=== PATIENT | female | born 1950 | race African-American/Black ===

== ENCOUNTER 2018-07-03 15:20 | Observation (INO) | payer OTHER ==
[2018-07-03 17:11] LABS: Magnesium 1.9 mg/dL (1.8-2.4); Potassium 4.1 mmol/L (3.5-5.1)
[2018-07-03] MEDS ORDERED: METHYLPREDNISOLONE 125 MG INJ ONE (17:11)
[2018-07-03] MEDS ORDERED: IPRATROPIUM BROM 0.5MG/2.5ML ONE (17:11)
[2018-07-03] MEDS ORDERED: ALBUTEROL 2.5 MG/3 ML NEB SOL ONE (17:11)
[2018-07-03] MEDS ORDERED: HYDROCODONE/CHLORPHEN 5 ML/OSYR ONE (17:11)
[2018-07-03 17:12] LABS: Absolute Lymphocytes (CBC) 1.4 K/uL (0.7-4.9); Absolute Monocytes 0.6 K/uL (0.1-1.3); Absolute Neutrophil 2.3 K/uL (1.8-8.0); Basophils % 0.8 % (0-1.3); Eosinophils % 0.1 % (0-4.4); Hematocrit 43.6 % (36.0-45.0); Lymphocytes % 32.9 % (15.3-44.8); MPV 8.7 fL (7.6-11.3); Monocytes % 13.4 % (3.3-12.3)
--- NOTE | 2018-07-03 17:25 | RAD REPORT ---
EXAM DESCRIPTION: Jasbir Single View07/03/2018 4:13 pm CLINICAL HISTORY: Cough COMPARISON: 2017 FINDINGS: The lungs appear clear of acute infiltrate. The heart is normal size IMPRESSION: No acute abnormalities displayed
--- NOTE | 2018-07-03 18:02 | ER ---
Nurse's Notes [facility] Name: Indu Abreu Age: 68 yrs Sex: Female : 1950 Arrival Date: 07/03/2018 Time: 15:24 Bed 8 Private MD: Lucio Powers Diagnosis: Acute bronchitis;Acute respiratory failure with hypoxia Presentation: 07/03 15:31 Presenting complaint: Patient states: NV/D, body aches, headache, productive cough with hb yellow sputum, fever, and fever x 3 days. Not tolerating liquids. Transition of care: patient was not received from another setting of care. Onset of symptoms was July 01, 2018. Risk Assessment: Do you want to hurt yourself or someone else? Patient reports no desire to harm self or others. Care prior to arrival: None. 15:31 Method Of Arrival: Ambulatory hb 15:31 Acuity: HUGH 3 hb 15:42 Initial Sepsis Screen: Does the patient meet any 2 criteria? No. Patient's initial tw2 sepsis screen is negative. Does the patient have a suspected source of infection? No. Patient's initial sepsis screen is negative. Historical: - Allergies: 15:35 No Known Allergies; hb - Home Meds: 15:35 acetaminophen-codeine 300-30 mg Oral tab 2 tabs every 6 hours [Active]; Colace 100 mg hb Oral cap 1 cap 2 times per day [Active]; duloxetine 60 mg Oral cpDR 1 cap once daily [Active]; furosemide 20 mg Oral tab 1 tab once daily [Active]; lisinopril 20 mg Oral tab 1 tab once daily [Active]; Lovenox 30 mg/0.3 mL Sub-Q syrg once daily [Active]; Neurontin 300 mg Oral cap 3 caps 3 times per day [Active]; nortriptyline 10 mg Oral cap 1 caps 3 times per day [Active]; omeprazole 20 mg Oral cpDR 1 cap once daily [Active]; Zofran (as hydrochloride) 4 mg Oral tab 1 tabs every 8 hours [Active]; - PMHx: 15:35 Anemia; Asthma; Hepatitis; Hypertension; Rheumatoid Arthritis; GERD; hb - PSHx: 15:35 knee surgery L; hb - Immunization history:: Adult Immunizations up to date. - Social history:: Smoking status: Patient/guardian denies using tobacco. - Ebola Screening: : No symptoms or risks identified at this time. Screenin:41 Abuse screen: Denies threats or abuse. Nutritional screening: No deficits noted. tw2 Tuberculosis screening: No symptoms or risk factors identified. Fall Risk None identified. Assessment: 15:45 General: Appears in no apparent distress. comfortable, well groomed, well developed, sg well nourished, Behavior is calm, cooperative, appropriate for age. Pain: Complains of pain in body aches Pain does not radiate. Quality of pain is described as aching. Neuro: No deficits noted. Cardiovascular: Heart tones S1 S2 present Capillary refill is brisk in bilateral fingers Patient's skin is warm and dry. Chest pain is denied. Respiratory: Airway is patent Respiratory effort is even, unlabored, Respiratory pattern is regular, symmetrical, Breath sounds are diminished in right upper lobe. Respiratory: Reports cough that is hacking, persistent pain with cough. GI: No signs and/or symptoms were reported involving the gastrointestinal system. : No deficits noted. No signs and/or symptoms were reported regarding the genitourinary system. EENT: No deficits noted. Derm: Skin is intact, is healthy with good turgor, Skin is dry, Skin is pink, warm \T\ dry. Skin temperature is warm. Musculoskeletal: No deficits noted. 16:30 Reassessment: Patient appears in no apparent distress at this time. Patient and/or sg family updated on plan of care and expected duration. Pain level reassessed. Patient is alert, oriented x 3, equal unlabored respirations, skin warm/dry/pink. Patient states symptoms have not improved. 17:40 Reassessment: Patient appears in no apparent distress at this time. Patient and/or sg family updated on plan of care and expected duration. Pain level reassessed. Patient is alert, oriented x 3, equal unlabored respirations, skin warm/dry/pink. awaiting admission orders at this time, pt states feeling better Patient states feeling better. 18:40 Reassessment: Patient appears in no apparent distress at this time. Patient and/or sg family updated on plan of care and expected duration. Pain level reassessed. Patient is alert, oriented x 3, equal unlabored respirations, skin warm/dry/pink. 19:35 Reassessment: Patient aware of pending admission. Neuro: Level of Consciousness is lp1 awake, alert, obeys commands. Respiratory: Reports cough that is pain with cough Respiratory effort is even, Respiratory pattern is regular, Breath sounds are coarse bilaterally. Derm: Skin is intact, Skin is dry, Skin is normal. Vital Signs: 15:33 BP 152 / 98; Pulse 118; Resp 18; Temp 98.; Pulse Ox 96% on R/A; Weight 136.08 kg; hb Height 5 ft. 7 in. (170.18 cm); Pain 10/10; 16:40 BP 142 / 90; Pulse 112; Resp 19 S; Pulse Ox 98% on R/A; sg 18:30 BP 154 / 92; Pulse 112; Resp 19 S; Pulse Ox 96% on R/A; Pain 8/10; sg 19:35 BP 151 / 83; Pulse 107; Resp 20; Temp 99.4(O); Pulse Ox 95% on 2 lpm NC; Pain 0/10; lp1 15:33 Body Mass Index 46.99 (136.08 kg, 170.18 cm) hb ED Course: 15:24 Patient arrived in ED. sb2 15:24 Lucio Powers DO is Private Physician. sb2 15:33 Triage completed. hb 15:35 Arm band placed on right wrist. hb 15:40 Placed in gown. Bed in low position. sheet combining operator on. Pulse ox on. NIBP on. tw2 15:48 Eric Linder PA is PHCP. jr8 15:48 Suleman Bradshaw MD is Attending Physician. jr8 16:13 XRAY Chest (1 view) In Process Unspecified. EDMS 16:15 EKG done, by design technology teacher. reviewed by Eric HORN. sm3 16:44 Inserted saline lock: 22 gauge in left upper arm, using aseptic technique. ,using tw2 aseptic technique. per TANYA Che Blood collected. 16:58 Dell Mtz, TANYA is Primary Nurse. sg 18:02 Alfredo Correa MD is Hospitalizing Provider. jr8 19:36 No provider procedures requiring assistance completed. Patient admitted, IV remains in lp1 place. Administered Medications: 17:13 Drug: SOLU-Medrol 125 mg Route: IVP; Site: left upper arm; sg 17:13 Drug: Albuterol - atroVENT (3:1) (2.5 mg - 0.5 mg) 3 ml Route: Nebulizer; sg 17:13 Drug: Tussionex Pennkinetic ER 5 ml Route: PO; Outcome: 18:02 Decision to Hospitalize by Provider. jrPaty 19:44 Condition: stable lp1 19:44 Instructed on the need for admit. 19:48 Admitted to Tele accompanied by nurse, via wheelchair, room 415, with oxygen, with lp1 chart, Report called to Terrie Yi RN 19:54 Patient left the ED. lp1 Signatures: Dispatcher [employer] EDMS Dell Mtz RN TANYA sg Lynne Moreno RN RN lp1 Eric Linder PA PA jr8 Yane Lowery RN RN Elyse Wagner RN RN 2 Kadi Graf 2 Suzie Traore 3
--- NOTE | 2018-07-03 18:02 | EDPHYS ---
Physician Documentation [facility] Name: Indu Abreu Age: 68 yrs Sex: Female : 1950 Arrival Date: 07/03/2018 Time: 15:24 Bed 8 Private MD: Gio [facility] ED Physician Suleman Bradshaw HPI: 07/03 17:01 This 68 yrs old Black Female presents to ER via Ambulatory with complaints of Flu jr8 Symptoms. 17:01 The patient has shortness of breath at rest. Onset: The symptoms/episode began/occurred jr8 gradually, 3 day(s) ago. Duration: The symptoms are continuous. The patient's shortness of breath is aggravated by coughing, talking, walking. Associated signs and symptoms: Pertinent positives: productive cough. Severity of symptoms: At their worst the symptoms were moderate in the emergency department the symptoms are unchanged. It is unknown whether or not the patient has had similar symptoms in the past. The patient has not recently seen a physician. Historical: - Allergies: 15:35 No Known Allergies; hb - Home Meds: 15:35 acetaminophen-codeine 300-30 mg Oral tab 2 tabs every 6 hours [Active]; Colace 100 mg hb Oral cap 1 cap 2 times per day [Active]; duloxetine 60 mg Oral cpDR 1 cap once daily [Active]; furosemide 20 mg Oral tab 1 tab once daily [Active]; lisinopril 20 mg Oral tab 1 tab once daily [Active]; Lovenox 30 mg/0.3 mL Sub-Q syrg once daily [Active]; Neurontin 300 mg Oral cap 3 caps 3 times per day [Active]; nortriptyline 10 mg Oral cap 1 caps 3 times per day [Active]; omeprazole 20 mg Oral cpDR 1 cap once daily [Active]; Zofran (as hydrochloride) 4 mg Oral tab 1 tabs every 8 hours [Active]; - PMHx: 15:35 Anemia; Asthma; Hepatitis; Hypertension; Rheumatoid Arthritis; GERD; hb - PSHx: 15:35 knee surgery L; hb - Immunization history:: Adult Immunizations up to date. - Social history:: Smoking status: Patient/guardian denies using tobacco. - Ebola Screening: : No symptoms or risks identified at this time. ROS: 17:01 Eyes: Negative for injury, pain, redness, and discharge, Neck: Negative for injury, jr8 pain, and swelling, Cardiovascular: Negative for chest pain, palpitations, and edema, Abdomen/GI: Negative for abdominal pain, nausea, vomiting, diarrhea, and constipation, Back: Negative for injury and pain, MS/Extremity: Negative for injury and deformity, Skin: Negative for injury, rash, and discoloration, Neuro: Negative for headache, weakness, numbness, tingling, and seizure. 17:01 ENT: Positive for rhinorrhea, sinus congestion. 17:01 Respiratory: Positive for cough, dyspnea on exertion, shortness of breath, wheezing. Exam: 17:01 Eyes: Pupils equal round and reactive to light, extra-ocular motions intact. Lids and jr8 lashes normal. Conjunctiva and sclera are non-icteric and not injected. Cornea within normal limits. Periorbital areas with no swelling, redness, or edema. ENT: Nares patent. No nasal discharge, no septal abnormalities noted. Tympanic membranes are normal and external auditory canals are clear. Oropharynx with no redness, swelling, or masses, exudates, or evidence of obstruction, uvula midline. Mucous membranes moist. Neck: Trachea midline, no thyromegaly or masses palpated, and no cervical lymphadenopathy. Supple, full range of motion without nuchal rigidity, or vertebral point tenderness. No Meningismus. Cardiovascular: Regular rate and rhythm with a normal S1 and S2. No gallops, murmurs, or rubs. Normal PMI, no JVD. No pulse deficits. Abdomen/GI: Soft, non-tender, with normal bowel sounds. No distension or tympany. No guarding or rebound. No evidence of tenderness throughout. Back: No spinal tenderness. No costovertebral tenderness. Full range of motion. Skin: Warm, dry with normal turgor. Normal color with no rashes, no lesions, and no evidence of cellulitis. MS/ Extremity: Pulses equal, no cyanosis. Neurovascular intact. Full, normal range of motion. Neuro: Awake and alert, GCS 15, oriented to person, place, time, and situation. Cranial nerves II-XII grossly intact. Motor strength 5/5 in all extremities. Sensory grossly intact. Cerebellar exam normal. Normal gait. 17:01 Respiratory: mild respiratory distress is noted, Respirations: tachypnea, Breath sounds: decreased breath sounds, that are mild, are heard in the right upper lobe, rhonchi, that are mild, are heard diffusely, wheezing: expiratory that is moderate, is heard diffusely. Vital Signs: 15:33 BP 152 / 98; Pulse 118; Resp 18; Temp 98.; Pulse Ox 96% on R/A; Weight 136.08 kg; hb Height 5 ft. 7 in. (170.18 cm); Pain 10/10; 16:40 BP 142 / 90; Pulse 112; Resp 19 S; Pulse Ox 98% on R/A; sg 18:30 BP 154 / 92; Pulse 112; Resp 19 S; Pulse Ox 96% on R/A; Pain 8/10; sg 19:35 BP 151 / 83; Pulse 107; Resp 20; Temp 99.4(O); Pulse Ox 95% on 2 lpm NC; Pain 0/10; lp1 15:33 Body Mass Index 46.99 (136.08 kg, 170.18 cm) hb MDM: 15:48 Patient medically screened. jr8 18:00 Data reviewed: vital signs, nurses notes, lab test result(s), EKG, radiologic studies, jr8 plain films, and as a result, I will admit patient. Data interpreted: Pulse oximetry: on room air is 86 %. Interpretation: hypoxia. Plan: O2 by NC applied. Counseling: I had a detailed discussion with the patient and/or guardian regarding: the historical points, exam findings, and any diagnostic results supporting the discharge/admit diagnosis, lab results, radiology results, the need for further work-up and treatment in the hospital. ED course: post steroids and breathing treatments. Patient still at rest 85-89% RA. Will admit for Acute bronchitis with hypoxia . 07/03 15:56 Order name: CBC with Diff; Complete Time: 17:17 07/03 15:56 Order name: Basic Metabolic Panel; Complete Time: 17:17 07/03 15:56 Order name: XRAY Chest (1 view); Complete Time: 17:33 07/03 15:56 Order name: Influenza Screen (a \T\ B); Complete Time: 17:01 07/03 15:57 Order name: Magnesium; Complete Time: 17:17 07/03 15:57 Order name: NT PRO-BNP; Complete Time: 17:17 07/03 15:55 Order name: Oxygen; Complete Time: 16:59 07/03 15:56 Order name: IV; Complete Time: 16:59 07/03 15:57 Order name: EKG; Complete Time: 15:57 07/03 15:57 Order name: Cardiac monitoring; Complete Time: 16:58 07/03 15:57 Order name: EKG - Nurse/Tech; Complete Time: 16:58 07/03 15:57 Order name: Labs collected and sent; Complete Time: 16:58 07/03 15:57 Order name: O2 Per Protocol; Complete Time: 16:58 07/03 15:57 Order name: O2 Sat Monitoring; Complete Time: 16:58 Administered Medications: 17:13 Drug: SOLU-Medrol 125 mg Route: IVP; Site: left upper arm; sg 17:13 Drug: Albuterol - atroVENT (3:1) (2.5 mg - 0.5 mg) 3 ml Route: Nebulizer; sg 17:13 Drug: Tussionex Pennkinetic ER 5 ml Route: PO; sg Disposition: 07/03/18 18:02 Hospitalization ordered by Alfredo Correa for Observation. Preliminary diagnosis are Acute bronchitis, Acute respiratory failure with hypoxia. - Bed requested for Telemetry/MedSurg (observation). - Status is Observation. lp1 - Condition is Stable. - Problem is new. - Symptoms are unchanged. UTI on Admission? No Addendum: 07/14/2018 07:34 Co-signature as Attending Physician, Suleman Bradshaw MD I agree with the assessment and k dr plan of care. Signatures: Dispatcher [employer] EDMS Dell Mtz RN RN sg Suleman Bradshaw MD MD kdr Martinez, Eric em1 Lynne Moreno RN RN lp1 Eric Linder PA PA jr8 Yane Lowery RN RN Corrections: (The following items were deleted from the chart) 07/03 18:03 18:02 Hospitalization Ordered by Alfredo Correa MD for Observation. Preliminary diagnosis jr8 is Acute bronchitis; Acute respiratory failure with hypoxia. Bed requested for Telemetry/MedSurg (observation). Status is Observation. Condition is Stable. Problem is new. Symptoms are unchanged. UTI on Admission? No. jr8 19:20 18:03 07/03/2018 18:02 Hospitalization Ordered by Alfredo Correa MD for Observation. em1 Preliminary diagnosis is Acute bronchitis; Acute respiratory failure with hypoxia. Bed requested for Telemetry/MedSurg (observation). Status is Observation. Condition is Stable. Problem is new. Symptoms are unchanged. UTI on Admission? No. jr8 19:54 19:20 07/03/2018 18:02 Hospitalization Ordered by Alfredo Correa MD for Observation. lp1 Preliminary diagnosis is Acute bronchitis; Acute respiratory failure with hypoxia. Bed requested for Telemetry/MedSurg (observation). Status is Observation. Condition is Stable. Problem is new. Symptoms are unchanged. UTI on Admission? No. em1
[2018-07-03] MEDS ORDERED: ONDANSETRON 4 MG/2 ML VIAL IV PRN (20:22)
[2018-07-03] MEDS ORDERED: ACETAMINOPHEN 500 MG TAB PO PRN (20:22)
[2018-07-03 21:15] VITALS: BMI 44.4
[2018-07-03] MEDS ORDERED: METHYLPREDNISOLONE 125 MG INJ IV ONE (22:02)
[2018-07-03] MEDS: HYDROCODONE/CHLORPHEN 5 ML/OSYR PO PRN (22:46)
[2018-07-04] MEDS: IPRATROPIUM BROM 0.5MG/2.5ML NEB SCH ×4 (02:00→19:15)
[2018-07-04] MEDS: ALBUTEROL 2.5 MG/3 ML NEB SOL NEB SCH ×4 (02:00→19:15)
[2018-07-04 06:41] LABS: Albumin 3.3 g/dL (3.4-5.0); Bilirubin Total 0.2 mg/dL (0.2-1.0); Potassium 4.6 mmol/L (3.5-5.1)
[2018-07-04] MEDS: METHYLPREDNISOLONE 125 MG INJ IV SCH ×2 (06:47→12:00)
--- NOTE | 2018-07-04 07:01 | EKG ---
Test Date: 2018-07-03 Test Time: 16:10:38 Chalk Molding Machine Operator: MALAIKA MEASUREMENT RESULTS: Intervals: Rate: 114 WA: 142 QRSD: 68 QT: 334 QTc: 460 [place]: P: 76 WA: 142 QRS: 82 T: 65 INTERPRETIVE STATEMENTS: Sinus tachycardia with premature atrial complexes Otherwise normal ECG No previous ECG available for comparison Electronically Signed On 07-04-18 06:52:16 BUTT SAWYER by Sunny Hernandez
[2018-07-04] MEDS ORDERED: PNEUMOCOCCAL VACCINE 0.5 ML IMVAC ONE (08:00)
--- NOTE | 2018-07-04 09:23 | P.HP ---
Certification for Inpatient Patient admitted to: Observation With expected LOS: <2 Midnights Patient will require the following post-hospital care: None Practitioner: I am a practitioner with admitting privileges, knowledge of patient current condition, hospital course, and medical plan of care. Services: Services provided to patient in accordance with Admission requirements found in Title 42 Section 412.3 of the Code of Federal Regulations Patient History Date of Service: 07/03/18 Reason for admission: Shortness of breath History of Present Illness: Patient is a 68-year-old female with a history of asthma. She also has obstructive sleep apnea. She came to the hospital with difficulty breathing. She was coughing and congested and having wheezing. In the ER her workup was unremarkable and she was diagnosed with an asthma exacerbation. She was given nebs, steroids, and will start antibiotics. We will check peak flows. Plan to discharge patient in 48 hr. Allergies No Known Drug Allergies Allergy (Verified 07/03/18 21:34) Unknown Home Medications: Acetaminophen with Codeine [Acetaminophen-Cod #3 Tablet] 1 tab PO TIDP PRN 07/03 Dicyclomine HCl 1 tab PO QIDP PRN 07/03/18 Gabapentin 900 mg PO TID 07/03/18 Hydrocortisone Acetate [Hydrocortisone] 2 debbie TP TIDP PRN 07/03/18 Lisinopril [Prinivil*] 20 mg PO BID 07/03/18 Montelukast [Singulair] 10 mg PO BEDTIME 07/03/18 Nortriptyline HCl [Pamelor*] 10 mg PO TID 07/03/18 Solifenacin [Vesicare*] 5 mg PO DAILY 07/03/18 Sucralfate [Carafate] 2 tsp PO ACHS 07/03/18 Zolpidem Tartrate [Ambien] 5 mg PO BEDTIME PRN 07/04/18 - Past Medical/Surgical History Has patient received pneumonia vaccine in the past: No Diabetic: No -: Hepatitis B & C -: Asthma -: Rhematoid arthritis -: Pneumonia -: Multiple Myeloma -: Appendectomy -: Left knee replacement -: Stem cell Transplant - Family History Father Medical History: Cancer Mother Medical History: Lung disease Brother Medical History: Hypertension, Lung disease Sister Medical History: Heart disease, Blood disorders Notes: hemipheliac - Social History Smoking Status: Former smoker Alcohol use: No CD- Drugs: No Caffeine use: Yes Place of Residence: Home Review of Systems 10-point ROS is otherwise unremarkable Physical Examination - Vital Signs Temperature: 96.1 F Blood Pressure: 136/81 Pulse: 83 Respirations: 16 Pulse Ox (%): 94 - Physical Exam General: Alert, In no apparent distress, Oriented x3 HEENT: Atraumatic, PERRLA, Mucous membr. moist/pink, EOMI, Sclerae nonicteric Neck: Supple, 2+ carotid pulse no bruit, No LAD, Without JVD or thyroid abnormality Respiratory: Clear to auscultation bilaterally, Normal air movement Cardiovascular: Regular rate/rhythm, Normal S1 S2, No murmurs Gastrointestinal: Normal bowel sounds, Soft and benign, Non-distended, No tenderness Musculoskeletal: No clubbing, No swelling, No tenderness Integumentary: No rashes Neurological: Normal gait, Normal speech, Normal strength at 5/5 x4 extr, Normal tone, Sensation intact, Cranial nerves 3-12 intact, Normal affect Lymphatics: No axilla or inguinal lymphadenopathy - Studies Laboratory Data (last 24 hrs) 07/03/18 16:40: Sodium 133 L, Potassium 4.1, BUN 16, Creatinine 1.20, Glucose 98 , Magnesium 1.9 07/03/18 16:40: WBC 4.4 D, Hgb 14.3, Hct 43.6, Plt Count 158 Microbiology Data (last 24 hrs): 07/03/18 16:25 Nasopharnyx Influenza Type A Antigen Screen - Final 07/03/18 16:25 Nasopharnyx Influenza Type B Antigen Screen - Final Assessment & Plan - Problems (Diagnosis) (1) Asthma exacerbation Onset Date: 07/04/18 Current Visit: Yes Status: Acute - Plan Plan: 1. Continue with albuterol and Atrovent nebs 2. Continue with IV steroids 3. Outpatient pulmonary function testing 4. Pulmonary follow-up 5. Room air O2 sats 6. Repeat chest x-ray in am 7. Peak flows every AM 8. GI and DVT prophylaxis Discharge Plan: Home Plan to discharge in: 48 Hours - Advance Directives Does patient have a Living Will: No Does patient have a Durable POA for Healthcare: No - Code Status/Comfort Care Code Status Assessed: Yes Code Status: Full Code Critical Care: No Time Spent Managing PTS Care (In Minutes): 50
[2018-07-04] MEDS: AZITHROMYCIN 250 MG TAB PO SCH (10:00)
[2018-07-04] MEDS: HYDROCODONE/CHLORPHEN 5 ML/OSYR PO PRN ×2 (10:55→22:27)
[2018-07-04] MEDS ORDERED: ZOLPIDEM TARTRATE 5 MG TABLET PO PRN (14:52)
--- NOTE | 2018-07-04 15:04 | P.PN ---
Subjective Date of Service: 07/04/18 Chief Complaint: Shortness of breath Physical Examination - Vital Signs Temperature: 96.5 F Blood Pressure: 137/88 Pulse: 94 Respirations: 20 Pulse Ox (%): 91 - Studies Laboratory Data (last 24 hrs) 07/03/18 16:40: Sodium 133 L, Potassium 4.1, BUN 16, Creatinine 1.20, Glucose 98 , Magnesium 1.9 07/03/18 16:40: WBC 4.4 D, Hgb 14.3, Hct 43.6, Plt Count 158 Microbiology Data (last 24 hrs): 07/03/18 16:25 Nasopharnyx Influenza Type A Antigen Screen - Final 07/03/18 16:25 Nasopharnyx Influenza Type B Antigen Screen - Final Assessment And Plan - Plan This is a 68-year-old female with: Asthma exacerbation Continue with albuterol and Atrovent nebs. Switched to oral steroids from IV steroids She will need outpatient pulmonary followup along with pulmonary function testing with exacerbation is resolved. And a weaned off oxygen Will repeat a chest x-ray tomorrow morning. No need for antibiotics at this time. Hepatitis-B and C Patient with a history of hepatitis-B and C. Not on any treatment. Stable, she will continue outpatient follow up for this Rheumatoid arthritis Stable Multiple myeloma history, requiring stem-cell transplant Stable DVT prophylaxis: Not needed, encourage ambulation GI prophylaxis: Not needed Diet: Heart healthy Disposition: Pending symptomatic improvement. Likely discharge home in the next 24-48 hr Physician Review: Patient Assessed, Agree with Above Assessment and Plan Time Spent Managing PTS Care (In Minutes): 35
--- OUTSIDE RECORDS SUMMARY | 2018-07-04 17:35 | XMS REPORT ---
:1950 Author Organization [employer] Care Team Providers Name Role Phone Gio Lucio Provider Role Unavailable Allergies, Adverse Reactions, Alerts Substance Reaction Event Type N.K.D.A. 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 Problem Adverse effect of antineoplastic T45.1X5A Active and immunosuppressive drugs, initial encounter Problem Chronic hepatitis C without B18.2 Active hepatic coma Problem Hepatitis B infection without B19.10 Active delta agent without hepatic coma, unspecified chronicity Problem Hypertension, unspecified type I10 Active Problem Osteoarthritis of multiple joints, M15.9 Active unspecified osteoarthritis type Problem Polyp of colon, unspecified part K63.5 Active of colon, unspecified type Assessment Osteoarthritis of multiple joints, M15.9 Active unspecified osteoarthritis type Assessment Hepatitis B infection without B19.10 Active delta agent without hepatic coma, unspecified chronicity Assessment Chronic hepatitis C without B18.2 Active hepatic coma Assessment Adverse effect of antineoplastic T45.1X5A Active and immunosuppressive drugs, initial encounter Assessment Polyp of colon, unspecified part K63.5 Active of colon, unspecified type 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 Assessment Hypertension, unspecified type I10 Active Medications Medication Code Code Instructions Start End Status Dosage System Date Date Gabapentin ND 96029578627 300 MG Orally Active 1 capsule Three times a day Carafate [facility] 20373091755 1 GM/10ML Active 10 ml before Orally Four meals and at times a day bedtime Montelukast ND 00995109673 10 MG Orally Active 1 tablet Sodium Once a day Pantoprazole ND 79980965603 40 MG Orally Active 1 tablet Sodium Once a day Hydrocortisone [facility] [id number] 2.5 % Active 1 application Externally to affected Twice a day area (rash) as needed Dicyclomine HCl ND 41907938375 20 MG Orally Active 1 tablet as Four times a needed for day abdominal pain Nortriptyline HCl [facility] 53560278749 10 MG Orally Active 1 capsule Three times a day VESIcare [facility] 16832763443 5 MG Orally Active 1 tablet Once a day Lisinopril [facility] 80626195142 10 MG Orally Active 1 tablet Once a day Results No Known Results Summary Purpose [employer] Submission
--- OUTSIDE RECORDS SUMMARY | 2018-07-04 17:36 | XMS REPORT ---
:1950 [facility] Address [address] [place] [address] Dr. Babb [address] [place] [id number] Care Team Providers Name Role Phone Unavailable Unavailable Unavailable Problems This patient has no known problems. Allergies, Adverse Reactions, Alerts This patient has no known allergies or adverse reactions. Medications This patient has no known medications. Encounters Start End Encounter Admission Attending Care Care Encounter Date/Time Date/Time Type Type Clinicians Facility Department ID 2017-01-17 2017-01-17 Emergency [facility] [id number] 21:14:45 21:14:45 2017-01-17 2017-01-17 Emergency [facility] [id number] 16:17:30 16:17:30
[2018-07-04] MEDS: SUCRALFATE 1GM/10ML UCUP PO SCH ×2 (17:39→20:46)
[2018-07-04] MEDS: NA CHLORIDE 0.9% 1,000 ML IV SCH ×2 (18:59→20:48)
[2018-07-04] MEDS: GABAPENTIN 300 MG CAP PO SCH (20:47)
[2018-07-04] MEDS: MONTELUKAST 10 MG TAB PO SCH (20:47)
[2018-07-04] MEDS: LISINOPRIL 20 MG TAB PO SCH (20:47)
[2018-07-04] MEDS ORDERED: predniSONE 20 MG TAB PO SCH (21:00)
[2018-07-04] MEDS: NORTRIPTYLINE HCL 10 MG CAP PO SCH (21:00)
[2018-07-04] MEDS: CODEINE 30MG/APAP 300MG TAB PO PRN (22:26)
[2018-07-05] MEDS: ALBUTEROL 2.5 MG/3 ML NEB SOL NEB SCH ×4 (01:20→20:10)
[2018-07-05] MEDS: IPRATROPIUM BROM 0.5MG/2.5ML NEB SCH ×4 (01:20→20:10)
[2018-07-05] MEDS: LISINOPRIL 20 MG TAB PO SCH ×2 (08:31→21:02)
[2018-07-05] MEDS: predniSONE 20 MG TAB PO SCH (08:31)
[2018-07-05] MEDS: SUCRALFATE 1GM/10ML UCUP PO SCH ×4 (08:32→21:01)
[2018-07-05] MEDS: AZITHROMYCIN 250 MG TAB PO SCH (08:32)
[2018-07-05] MEDS: GABAPENTIN 300 MG CAP PO SCH ×3 (08:32→21:02)
[2018-07-05] MEDS: NORTRIPTYLINE HCL 10 MG CAP PO SCH ×3 (08:37→21:00)
[2018-07-05] MEDS: SOLIFENACIN SUCCIN 5 MG TAB PO SCH (08:38)
[2018-07-05] MEDS: HYDROCODONE/CHLORPHEN 5 ML/OSYR PO PRN ×2 (12:00→22:14)
[2018-07-05] MEDS: NA CHLORIDE 0.9% 1,000 ML IV SCH ×2 (16:34→21:00)
[2018-07-05] MEDS: AZITHROMYCIN IV 250 MG in NA CHLORIDE 0.9% 250 ML IVPB SCH (16:36)
--- NOTE | 2018-07-05 18:00 | P.PN ---
Subjective Date of Service: 07/05/18 Chief Complaint: Shortness of breath Subjective: No new changes, Improving Patient seen and examined at bedside. No family at bedside. Chart reviewed and case discussed with nursing staff. Review of Systems 10-point ROS is otherwise unremarkable Physical Examination - Vital Signs Temperature: 96.6 F Blood Pressure: 150/73 Pulse: 90 Respirations: 20 Pulse Ox (%): 92 - Physical Exam General: Alert, In no apparent distress, Oriented x3 HEENT: Atraumatic, PERRLA, EOMI Neck: Supple, JVD not distended Respiratory: Dull, Expiratory wheezes, Inspiratory wheezes Cardiovascular: Regular rate/rhythm, Normal S1 S2 Gastrointestinal: Normal bowel sounds, No tenderness Musculoskeletal: No tenderness Integumentary: No rashes Neurological: Normal speech, Normal tone, Normal affect Lymphatics: No axilla or inguinal lymphadenopathy Assessment And Plan - Plan This is a 68-year-old female with: Asthma exacerbation Continue with albuterol and Atrovent nebs. Continue antibiotics, patient now has IV in. Continue IV and switch to oral on discharge She will need outpatient pulmonary followup along with pulmonary function testing once exacerbation is resolved. wean off oxygen as tolerated Will repeat a chest x-ray tomorrow morning. Hepatitis-B and C Patient with a history of hepatitis-B and C. Not on any treatment. Stable, she will continue outpatient follow up for this Rheumatoid arthritis Stable Multiple myeloma history, requiring stem-cell transplant Stable DVT prophylaxis: Not needed, encourage ambulation GI prophylaxis: Not needed Diet: Heart healthy Disposition: Pending symptomatic improvement. Likely discharge home in the next 24-48 hr Discharge Plan: Home Plan to discharge in: 24 Hours Physician Review: Patient Assessed, Agree with Above Assessment and Plan
[2018-07-05] MEDS: MONTELUKAST 10 MG TAB PO SCH (21:02)
[2018-07-05] MEDS: CODEINE 30MG/APAP 300MG TAB PO PRN (21:02)
[2018-07-06] MEDS: ALBUTEROL 2.5 MG/3 ML NEB SOL NEB SCH ×2 (01:30→07:50)
[2018-07-06] MEDS: IPRATROPIUM BROM 0.5MG/2.5ML NEB SCH ×2 (01:30→07:50)
[2018-07-06 05:44] LABS: Magnesium 2.1 mg/dL (1.8-2.4); Phosphorus 2.2 mg/dL (2.5-4.9); Potassium 4.6 mmol/L (3.5-5.1)
[2018-07-06] MEDS: POTASS/SODIUM PHOSPHATE 1 PKT POWD.PACK PO SCH ×3 (06:43→11:12)
[2018-07-06] MEDS: AZITHROMYCIN IV 250 MG in NA CHLORIDE 0.9% 250 ML IVPB SCH (08:46)
[2018-07-06] MEDS: predniSONE 20 MG TAB PO SCH (08:47)
[2018-07-06] MEDS: HYDROCODONE/CHLORPHEN 5 ML/OSYR PO PRN (08:47)
[2018-07-06] MEDS: GABAPENTIN 300 MG CAP PO SCH (08:48)
[2018-07-06] MEDS: LISINOPRIL 20 MG TAB PO SCH (08:48)
[2018-07-06] MEDS: SOLIFENACIN SUCCIN 5 MG TAB PO SCH (08:50)
[2018-07-06] MEDS: NORTRIPTYLINE HCL 10 MG CAP PO SCH (08:50)
[2018-07-06] MEDS: SUCRALFATE 1GM/10ML UCUP PO SCH ×2 (08:52→11:14)
[2018-07-06 10:16] VITALS: O2SAT 95
[2018-07-06] MEDS: NA CHLORIDE 0.9% 1,000 ML IV SCH (11:00)
--- NOTE | 2018-07-06 11:57 | P.SSS ---
Patient History Date of Service: 07/06/18 Reason for admission: Shortness of breath History of Present Illness: Patient is a 68-year-old female with a history of asthma. She also has obstructive sleep apnea. She came to the hospital with difficulty breathing. She was coughing and congested and having wheezing. In the ER her workup was unremarkable and she was diagnosed with an asthma exacerbation. She was given nebs, steroids, and will start antibiotics. We will check peak flows. Plan to discharge patient in 48 hr. Allergies No Known Drug Allergies Allergy (Verified 07/03/18 21:34) Unknown Home Medications: Acetaminophen with Codeine [Acetaminophen-Cod #3 Tablet] 1 tab PO TIDP PRN 07/03 Dicyclomine HCl 1 tab PO QIDP PRN 07/03/18 Gabapentin 900 mg PO TID 07/03/18 Hydrocortisone Acetate [Hydrocortisone] 2 debbie TP TIDP PRN 07/03/18 Lisinopril [Prinivil*] 20 mg PO BID 07/03/18 Montelukast [Singulair*] 10 mg PO BEDTIME 07/03/18 Nortriptyline HCl [Pamelor*] 10 mg PO TID 07/03/18 Solifenacin [Vesicare*] 5 mg PO DAILY 07/03/18 Sucralfate [Carafate] 2 tsp PO ACHS 07/03/18 Zolpidem Tartrate [Ambien*] 5 mg PO BEDTIME PRN 07/04/18 Azithromycin 250 mg PO DAILY #5 tablet 07/06/18 predniSONE [Prednisone] 20 mg PO DAILY #10 tablet 07/06/18 - Past Medical/Surgical History Has patient received pneumonia vaccine in the past: No Diabetic: No -: Hepatitis B & C -: Asthma -: Rhematoid arthritis -: Pneumonia -: Multiple Myeloma -: Appendectomy -: Left knee replacement -: Stem cell Transplant - Family History Father -: Cancer Mother -: Lung disease Brother -: Hypertension, Lung disease Sister -: Heart disease, Blood disorders Notes: hemipheliac - Social History Smoking Status: Former smoker Alcohol use: No CD- Drugs: No Caffeine use: Yes Place of Residence: Home Review of Systems 10-point ROS is otherwise unremarkable Physical Examination - Vital Signs Temperature: 97.0 F Blood Pressure: 163/75 Pulse: 83 Respirations: 22 Pulse Ox (%): 95 - Physical Exam General: Alert, In no apparent distress, Oriented x3 HEENT: Atraumatic, PERRLA, Mucous membr. moist/pink, EOMI, Sclerae nonicteric Neck: Supple, 2+ carotid pulse no bruit, No LAD, Without JVD or thyroid abnormality Respiratory: Clear to auscultation bilaterally, Normal air movement Cardiovascular: Regular rate/rhythm, Normal S1 S2 Gastrointestinal: Normal bowel sounds, No tenderness Musculoskeletal: No tenderness Integumentary: No rashes Neurological: Normal gait, Normal speech, Normal strength at 5/5 x4 extr, Normal tone, Normal affect Lymphatics: No axilla or inguinal lymphadenopathy Treatment Summary: Asthma exacerbation She was admitted, breathing treatments with DuoNeb so started. Antibiotics by IV was started, converted to oral discharge. Breathing has improved, wheezing also has improved. Patient doing better overall. No new complaints or concerns. Hemodynamically stable, tolerating diet. Satting well on room air. Repeat chest x-ray with improvement. She will need outpatient pulmonary followup along with pulmonary function testing once exacerbation is resolved. Information for pulmonology outpatient provided. - Disposition Condition: GOOD Patient Discharge Instructions: Please follow up with the primary care physician in 1 week. Please follow up with the pulmonology, information provided to you. Prescription for antibiotics and steroids sent to pharmacy. Please return to the ER for worsening symptoms Diet: AHA Activity: Ad mark Physician Review: Patient Assessed, Agree with Above Assessment and Plan
--- NOTE | 2018-07-06 12:19 | RAD REPORT ---
EXAM DESCRIPTION: RAD - Chest Single View - 07/06/2018 6:15 am CLINICAL HISTORY: SOB Chest pain. COMPARISON: Chest Single View dated 07/03/2018; Chest Single View dated 06/03/2017; CHEST SINGLE VIE W dated 04/10/2013; CHEST SINGLE VIEW dated 04/09/2013 FINDINGS: Portable technique limits examination quality. The lungs are grossly clear. The heart is normal in size. No displaced fractures. IMPRESSION: No acute intrathoracic process suspected.
[2018-07-06 12:28] VITALS: BP 144/67; TEMP 97.2
[2018-07-07] MEDS ORDERED: NORTRIPTYLINE HCL 10 MG CAP PO SCH (09:00)
== END 2018-07-06 13:30 | disposition home or self-care (01) ==
LOC: ER 15:20 → ERHOLD 18:22 → 4TH 19:49
PROVIDERS: ADMIT Family Medicine; ATTEND Hospitalist
DX: J45.901 Unspecified asthma with (acute) exacerbation (principal); G47.33 Obstructive sleep apnea (adult) (pediatric); M06.9 Rheumatoid arthritis, unspecified; B19.10 Unspecified viral hepatitis B without hepatic coma; B19.20 Unspecified viral hepatitis C without hepatic coma; Z85.79 Personal history of other malignant neoplasms of lymphoid, hematopoietic and related tissues; Z96.652 Presence of left artificial knee joint
CPT/HCPCS: 36415 ×2; 71045 ×2; 80048 ×2; 80053; 83605 ×2; 83735 ×2; 83880; 84100; 85025; 87070; 87205; 87804 ×2; 93005; 94010 ×3; 94640 ×2; 94760 ×7; 96374; 99285; G0378 ×2; J0456; J2930 ×4; J7030 ×4; J7512

== ENCOUNTER 2019-09-24 17:44 | Emergency (ER) | payer OTHER ==
--- OUTSIDE RECORDS SUMMARY | 2019-09-24 17:47 | XMS REPORT ---
[...] Status Dosage System Date Date Gabapentin ND 87265671336 300 MG Orally Active 1 capsule Three times a day Carafate [facility] 29606844331 1 GM/10ML Active 10 ml before Orally Four meals and at times a day bedtime Montelukast ND 37651139878 10 MG Orally Active 1 tablet Sodium Once a day Pantoprazole ND 18570514376 40 MG Orally Active 1 tablet Sodium Once a day Hydrocortisone [facility] 04053517451 2.5 % Active 1 application Externally to affected Twice a day area (rash) as needed Dicyclomine HCl ND 52925847471 20 MG Orally Active 1 tablet as Four times a needed for day abdominal pain Nortriptyline HCl [facility] 86619389664 10 MG Orally Active 1 capsule Three times a day VESIcare [facility] 84799409013 5 MG Orally Active 1 tablet Once a day Lisinopril [facility] 44115585688 10 MG Orally Active 1 tablet Once a day Results No Known Results Summary Purpose [employer]Clinical[employer] Submission
--- OUTSIDE RECORDS SUMMARY | 2019-09-24 17:47 | XMS REPORT ---
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
--- OUTSIDE RECORDS SUMMARY | 2019-09-24 17:47 | XMS REPORT ---
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 Assessment Hypertension, unspecified type I10 Active Assessment Hepatitis B infection without B19.10 Active delta agent without hepatic coma, unspecified chronicity Assessment Multiple myeloma, remission status C90.00 Active unspecified Medications Medication Code Code Instructions Start End Status Dosage System Date Date Potassium [facility] 70467518739 20 MEQ Orally Active 1 capsule Chloride Twice a day Duloxetine HCl [facility] 93755717835 60 MG Orally Active 1 capsule Once a day VESIcare [facility] 80940924889 5 MG Orally Active 1 tablet Once a day Montelukast ND 76707418120 10 MG Orally Active 1 tablet Sodium Once a day Hydrocortisone [facility] 08001768388 2.5 % Active 1 application Externally to affected Twice a day area (rash) as needed Gabapentin [facility] 02418262570 300 MG Orally Active 1 capsule Three times a day Lasix [facility] 11283732643 20 MG Orally Active 1 tablet Once a day Dicyclomine HCl [facility] 45089664702 20 MG Orally Active 1 tablet as Four times a needed for day abdominal pain Carafate [facility] 86160456305 1 GM/10ML Active 10 ml before Orally Four meals and at times a day bedtime Nortriptyline HCl [facility] 71227716524 10 MG Orally Active 1 capsule Three times a day Pantoprazole [facility] 99105049164 40 MG Orally Active 1 tablet Sodium Once a day Lisinopril [facility] 46222243438 20 MG Orally Active 1 tablet Twice a day Results No Known Results Summary Purpose eClinicalWorks Submission
--- OUTSIDE RECORDS SUMMARY | 2019-09-24 17:47 | XMS REPORT ---
:1950 Author Organization eClinicalWorks Care Team Providers Name Role Phone Powers [facility] Provider Role Unavailable Allergies No Known Allergies [...] Medications Results No Known Results Summary Purpose [employer] Submission
--- OUTSIDE RECORDS SUMMARY | 2019-09-24 17:47 | XMS REPORT ---
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 03146390376 5 MG Orally Active 1 tablet Once a day Nortriptyline HCl [facility] 42078735804 10 MG Orally Active 1 capsule Three times a day Results No Known Results Summary Purpose [employer]ClinicalWorks Submission
--- OUTSIDE RECORDS SUMMARY | 2019-09-24 17:47 | XMS REPORT ---
:1950 [facility] Address [address] [place] [address] Care Team Providers Name Role Phone Unavailable Unavailable Unavailable Problems This patient has no known problems. Allergies, Adverse Reactions, Alerts This patient has no known allergies or adverse reactions. Medications This patient has no known medications. Encounters Start End Encounter Admission Attending Care Care Encounter Date/Time Date/Time Type Type Clinicians Facility Department ID 2017-01-17 2017-01-17 Emergency [facility] [id number] 21:14:45 21:14:45 2017-01-17 2017-01-17 Emergency [facility] [id number] 16:17:30 16:17:30 Results Test Description Test Time Test Comments Text Results Atomic Results Result Comments CT Chest w/o 2018-11-03 14:53:49 Patient: CARMELLA PARKER Contrast Date/Time11/03/2018 14:25 CDTReason for Examre-eval pneumonia;PneumoniaReportEXAM: CT CHEST WITHOUT CONTRASTHISTORY: Pneumonia; re-eval pneumoniaLocation code: R 16TECHNIQUE: Axial tomograms through the chest were obtained without intravenous contrast. Coronal and sagittal reformatted images are provided. Automated exposure reduction (Auto mA/Smart mA) was utilized in compliance with ACR Image Wisely with DLP of 238 mGy-cm.COMPARISON: CT chest dated 10/27/2018. Chest radiograph from 10/30/2018.FINDINGS:LUNGS: Slight interval decrease in the diffuse airspace consolidation involving the left upper lobe and lingula. Patchy tree-in-bud opacities involving the right upper lobe persists. Small patchy infiltrates at the superior segment of the right upper lobe persists as well. Small left parapneumonic effusion is seen with its dependent atelectasis at left lung base.CARDIAC: Mild cardiomegaly. No pericardial effusion. Small calcifications involve the aortic valve.VASCULATURE: Vascular calcifications involve the aorta and coronary arteries without thoracic aortic dissection or aneurysm. Pulmonary arteries of normal size.TRACHEOBRONCHIAL TREE: The trachea and lobar bronchi are unremarkable. No filling defects are seen.LYMPHATICS: A few slightly prominent mediastinal nodes such right paratracheal nodes measuring up to 1.1 cm, likely reactive.VISUALIZED ABDOMEN: Small, sliding-type hiatal hernia. Upper abdomen demonstrates no acute findings.BONES: No aggressive features. Dense superior and inferior endplates are sclerotic changes are seen particularly at the T1-T2, T5-T6, T8-T9, T10-T11 and T11-T12 levels. These suggest Modic type III endplate changes.SOFT TISSUES: Unremarkable.IMPRESSION:1. Compared to 10/27/2018 exam, slight interval improvement in multifocal pneumonia, most predominant in the left upper lobe/lingula. Moderate patchy infiltrates persist bilaterally as described.2. Small left parapneumonic effusion.3. Note mild cardiomegaly. Final Dictated by: MD Wiseman Eniola FDictated DT/TM: 11/03/2018 2:44 pmSigned by: MD Wiseman Eniola FSigned (Electronic Signature): 11/03/2018 2:53 pm XR Abdomen KUB 1 2018-10-30 15:16:39 Patient: CARMELLA PARKER Date/Time10/30/2018 14:58 CDTReason for ExamAbdominal painReportXR Abdomen KUB 1 ViewCLINICAL INFORMATION: Abdominal painCOMPARISONS: CT abdomen and pelvis dated October 27, 2018FINDINGS:Peripheral opacities are redemonstrated in the left lingula. No pleural effusion is seen.The bowel gas pattern is nonobstructive. A moderate amount of stool seen in the colon and rectum. Degenerative changes are seen in the lower lumbar spine. Moderate degenerative narrowing is seen in both hips.IMPRESSION:1. Nonobstructive bowel gas pattern.2. Left lingular pneumonia.Location: R16 Final Dictated by: MD Kessler Adam FDictated DT/TM: 10/30/2018 3:07 pmSigned by: MD Checo, Abundio FSigned (Electronic Signature): 10/30/2018 3:[address] Spine Thoracic 2018-10-27 23:00:27 Patient: CARMELLA PARKER w/o Contrast Date/Time10/27/2018 22:25 CDTReason for ExamTraumaReportLOCATION: [id number]: 68-year-old female presents with a trauma history.COMMENT: Field 3Axial CT imaging of this patient's chest, abdomen, and pelvis was obtained from the thoracic inlet through the pelvic floor without IV contrast with trauma technique. Coronal and sagittal soft tissue reconstructions were included. Axial imaging of the thoracic spine and lumbar spine were obtained as well and submitted in soft tissue and bone window imaging technique. Coronal and sagittal soft tissue and bone reconstructions were included.One or more of the following dose reduction techniques are used: Automated exposure control, adjustment of the mA and/or kV according the patient size, and/or utilization of iterative reconstruction technique.DLP: 1901.2 mGy-cmCONTRAST: NoneFINDINGS:CHEST CT:Patchy alveolar infiltrate is seen in the left upper lobe involving the lingular division. The pattern is suspicious for an acute pneumonia and clinical correlation is suggested. There is also a small focus of atelectasis seen in the superior segment of the right lower lobe. The lungs otherwise are clear. The vascular anatomy exhibits no acute findings. Great vessel tortuosity is seen. The cardiac silhouette and pulmonary venous return is unremarkable. No adenopathy is seen. No acute bony injury is seen in the rib cage.ABDOMEN/PELVIS CT:The liver, spleen, pancreas, adrenal glands, kidneys, and gallbladder exhibit no acute findings. The upper intestinal tract and small intestine are unremarkable. The appendix is not seen. The colon exhibits no acute findings. The vascular anatomy is unremarkable.In the pelvis the urinary bladder is unremarkable. The uterus appears bulky. The ovaries are not clearly seen. The visualized bony pelvis, sacrum, and proximal femora appear intact.THORACOLUMBAR SPINE CT:No acute bony injuries are seen in the thoracic spine or lumbar spine. Prominent central spurring is seen at multiple levels in the thoracic spine. There is extensive reactive endplate sclerosis seen in multiple thoracic vertebral bodies and in the lower lumbar spine. The posterior facets are unremarkable and the paraspinous soft tissues are unremarkable.IMPRESSION:Patchy alveolar infiltrate is seen within the lingula division of this patient's left upper lobe, suspicious for pneumonia.No acute findings seen elsewhere in the chest.No acute findings in the abdomen or pelvis.Exam Date/Time10/27/2018 22:25 CDTReportNo acute findings are seen in the thoracolumbar spine. Degenerative disc disease with ventral spurring is seen in the anatomy as described above. Final Dictated by: MD Kaur Robert LDictated DT/TM: 10/27/2018 10:53 pmSigned by: MD Kaur Robert LSigned (Electronic Signature): 10/27/2018 11:[address] Spine Lumbar w/o 2018-10-27 23:00:27 Patient: CARMELLA PARKER Contrast Date/Time10/27/2018 22:25 CDTReason for ExamTraumaReportLOCATION: [id number]: 68-year-old female presents with a trauma history.COMMENT: Field 3Axial CT imaging of this patient's chest, abdomen, and pelvis was obtained from the thoracic inlet through the pelvic floor without IV contrast with trauma technique. Coronal and sagittal soft tissue reconstructions were included. Axial imaging of the thoracic spine and lumbar spine were obtained as well and submitted in soft tissue and bone window imaging technique. Coronal and sagittal soft tissue and bone reconstructions were included.One or more of the following dose reduction techniques are used: Automated exposure control, adjustment of the mA and/or kV according the patient size, and/or utilization of iterative reconstruction technique.DLP: 1901.2 mGy-cmCONTRAST: NoneFINDINGS:CHEST CT:Patchy alveolar infiltrate is seen in the left upper lobe involving the lingular division. The pattern is suspicious for an acute pneumonia and clinical correlation is suggested. There is also a small focus of atelectasis seen in the superior segment of the right lower lobe. The lungs otherwise are clear. The vascular anatomy exhibits no acute findings. Great vessel tortuosity is seen. The cardiac silhouette and pulmonary venous return is unremarkable. No adenopathy is seen. No acute bony injury is seen in the rib cage.ABDOMEN/PELVIS CT:The liver, spleen, pancreas, adrenal glands, kidneys, and gallbladder exhibit no acute findings. The upper intestinal tract and small intestine are unremarkable. The appendix is not seen. The colon exhibits no acute findings. The vascular anatomy is unremarkable.In the pelvis the urinary bladder is unremarkable. The uterus appears bulky. The ovaries are not clearly seen. The visualized bony pelvis, sacrum, and proximal femora appear intact.THORACOLUMBAR SPINE CT:No acute bony injuries are seen in the thoracic spine or lumbar spine. Prominent central spurring is seen at multiple levels in the thoracic spine. There is extensive reactive endplate sclerosis seen in multiple thoracic vertebral bodies and in the lower lumbar spine. The posterior facets are unremarkable and the paraspinous soft tissues are unremarkable.IMPRESSION:Patchy alveolar infiltrate is seen within the lingula division of this patient's left upper lobe, suspicious for pneumonia.No acute findings seen elsewhere in the chest.No acute findings in the abdomen or pelvis.Exam Date/Time10/27/2018 22:25 CDTReportNo acute findings are seen in the thoracolumbar spine. Degenerative disc disease with ventral spurring is seen in the anatomy as described above. Final Dictated by: MD Kaur Robert LDictated DT/TM: 10/27/2018 10:53 pmSigned by: MD Kaur Robert LSigned (Electronic Signature): 10/27/2018 11:[address] Abdomen and 2018-10-27 23:00:27 Patient: CARMELLA PARKER Pelvis w/o Contrast Date/Time10/27/2018 22:25 CDTReason for ExamTraumaReportLOCATION: [id number]: 68-year-old female presents with a trauma history.COMMENT: Field 3Axial CT imaging of this patient's chest, abdomen, and pelvis was obtained from the thoracic inlet through the pelvic floor without IV contrast with trauma technique. Coronal and sagittal soft tissue reconstructions were included. Axial imaging of the thoracic spine and lumbar spine were obtained as well and submitted in soft tissue and bone window imaging technique. Coronal and sagittal soft tissue and bone reconstructions were included.One or more of the following dose reduction techniques are used: Automated exposure control, adjustment of the mA and/or kV according the patient size, and/or utilization of iterative reconstruction technique.DLP: 1901.2 mGy-cmCONTRAST: NoneFINDINGS:CHEST CT:Patchy alveolar infiltrate is seen in the left upper lobe involving the lingular division. The pattern is suspicious for an acute pneumonia and clinical correlation is suggested. There is also a small focus of atelectasis seen in the superior segment of the right lower lobe. The lungs otherwise are clear. The vascular anatomy exhibits no acute findings. Great vessel tortuosity is seen. The cardiac silhouette and pulmonary venous return is unremarkable. No adenopathy is seen. No acute bony injury is seen in the rib cage.ABDOMEN/PELVIS CT:The liver, spleen, pancreas, adrenal glands, kidneys, and gallbladder exhibit no acute findings. The upper intestinal tract and small intestine are unremarkable. The appendix is not seen. The colon exhibits no acute findings. The vascular anatomy is unremarkable.In the pelvis the urinary bladder is unremarkable. The uterus appears bulky. The ovaries are not clearly seen. The visualized bony pelvis, sacrum, and proximal femora appear intact.THORACOLUMBAR SPINE CT:No acute bony injuries are seen in the thoracic spine or lumbar spine. Prominent central spurring is seen at multiple levels in the thoracic spine. There is extensive reactive endplate sclerosis seen in multiple thoracic vertebral bodies and in the lower lumbar spine. The posterior facets are unremarkable and the paraspinous soft tissues are unremarkable.IMPRESSION:Patchy alveolar infiltrate is seen within the lingula division of this patient's left upper lobe, suspicious for pneumonia.No acute findings seen elsewhere in the chest.No acute findings in the abdomen or pelvis.Exam Date/Time10/27/2018 22:25 CDTReportNo acute findings are seen in the thoracolumbar spine. Degenerative disc disease with ventral spurring is seen in the anatomy as described above. Final Dictated by: MD Kaur Robert LDictated DT/TM: 10/27/2018 10:53 pmSigned by: MD Kaur Robert LSigned (Electronic Signature): 10/27/2018 11:[address] Chest w/o 2018-10-27 23:00:27 Patient: CARMELLA PARKER Date/Time10/27/2018 22:25 CDTReason for ExamTraumaReportLOCATION: [id number]: 68-year-old female presents with a trauma history.COMMENT: Field 3Axial CT imaging of this patient's chest, abdomen, and pelvis was obtained from the thoracic inlet through the pelvic floor without IV contrast with trauma technique. Coronal and sagittal soft tissue reconstructions were included. Axial imaging of the thoracic spine and lumbar spine were obtained as well and submitted in soft tissue and bone window imaging technique. Coronal and sagittal soft tissue and bone reconstructions were included.One or more of the following dose reduction techniques are used: Automated exposure control, adjustment of the mA and/or kV according the patient size, and/or utilization of iterative reconstruction technique.DLP: 1901.2 mGy-cmCONTRAST: NoneFINDINGS:CHEST CT:Patchy alveolar infiltrate is seen in the left upper lobe involving the lingular division. The pattern is suspicious for an acute pneumonia and clinical correlation is suggested. There is also a small focus of atelectasis seen in the superior segment of the right lower lobe. The lungs otherwise are clear. The vascular anatomy exhibits no acute findings. Great vessel tortuosity is seen. The cardiac silhouette and pulmonary venous return is unremarkable. No adenopathy is seen. No acute bony injury is seen in the rib cage.ABDOMEN/PELVIS CT:The liver, spleen, pancreas, adrenal glands, kidneys, and gallbladder exhibit no acute findings. The upper intestinal tract and small intestine are unremarkable. The appendix is not seen. The colon exhibits no acute findings. The vascular anatomy is unremarkable.In the pelvis the urinary bladder is unremarkable. The uterus appears bulky. The ovaries are not clearly seen. The visualized bony pelvis, sacrum, and proximal femora appear intact.THORACOLUMBAR SPINE CT:No acute bony injuries are seen in the thoracic spine or lumbar spine. Prominent central spurring is seen at multiple levels in the thoracic spine. There is extensive reactive endplate sclerosis seen in multiple thoracic vertebral bodies and in the lower lumbar spine. The posterior facets are unremarkable and the paraspinous soft tissues are unremarkable.IMPRESSION:Patchy alveolar infiltrate is seen within the lingula division of this patient's left upper lobe, suspicious for pneumonia.No acute findings seen elsewhere in the chest.No acute findings in the abdomen or pelvis.Exam Date/Time10/27/2018 22:25 CDTReportNo acute findings are seen in the thoracolumbar spine. Degenerative disc disease with ventral spurring is seen in the anatomy as described above. Final Dictated by: MD Kaur Robert LDictated DT/TM: 10/27/2018 10:53 pmSigned by: MD Kaur Robert LSigned (Electronic Signature): 10/27/2018 11:00 pm XR Chest 1 View 2018-10-27 21:28:47 Patient: CARMELLA PARKER Frontal Date/Time10/27/2018 21:15 CDTReason for ExamCHF (Congestive Heart Failure), knownReportLOCATION: [id number]: 68-year-old female with dyspnea.COMMENT:A frontal chest radiograph is obtained at the bedside at 8:46 p.m., and compared to a prior study of January 01, 2010.Central vascular congestion is present. The cardiac enlargement is also noted. There is an addition a focus of consolidation seen in the left lung lateral to the hilum. The skeleton and soft tissues exhibit no acute findings.IMPRESSION:Central vascular congestion with mild, generalized cardiac enlargement is seen.Also noted is a focus of alveolar infiltrate located lateral to the left hilum. Final Dictated by: MD Kaur Robert LDictated DT/TM: 10/27/2018 9:27 pmSigned by: MD Kaur Robert LSigned (Electronic Signature): 10/27/2018 9:[address] Spine Cervical 2018-10-27 16:29:45 Patient: CARMELLA PARKER w/o Contrast Date/Time10/27/2018 16:24 CDTReason for ExamTraumaReportEXAM: CT CERVICAL SPINE WITHOUT CONTRASTINDICATION: TraumaCOMPARISON: None availableTECHNIQUE: Axial CT imaging of the cervical spine was obtained without intravenous contrast. Coronal and sagittal reformatted images were submitted for review. IV contrast: NoneDISCUSSION:No acute fracture or dislocation is identified. The atlantoaxial and atlantooccipital articulations are normal. The vertebral bodies are normal in height, alignment and density. The facet joints and spinous processes are normal in alignment. There is diffuse facet joint arthropathy. There is loss of the intervertebral disc height throughout the cervical spine.No spinal canal stenosis. Mild/moderate neuroforaminal stenosis is noted throughout the cervical spine.The prevertebral and posterior paraspinal soft tissues are normal.IMPRESSION:1. No acute abnormality of the cervical spine.2. 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 Mild/moderate neuroforaminal stenosis throughout the cervical spine.LOCATION: [id number] CT exam was performed according to our departmental dose optimization program, which includes automated exposure control, adjustment of the mA and/or kV according to the patient size and/or use of iterative reconstructive technique. Final Dictated by: MD Bond Melanie CDictated DT/TM: 10/27/2018 4:28 pmSigned by: MD Bond Melanie CSigned (Electronic Signature): 10/27/2018 4:[address] Brain/Head w/o 2018-10-27 16:25:00 Patient: CARMELLA PARKER Contrast Date/Time10/27/2018 16:23 CDTReason for ExamTraumaReportEXAM: CT BRAIN WITHOUT CONTRASTINDICATION: TraumaCOMPARISON: None availableTECHNIQUE: Routine axial noncontrast CT images of the brain were obtained.IV contrast: None.DLP: 1409.5 mGy-cmFINDINGS:No intra-axial or extra-axial fluid collections are identified. No acute hemorrhage.There are areas of low attenuation within the supratentorial white matter consistent with chronic microvascular ischemic changes. The ventricles and sulci are normal in size and shape with no midline shift or mass effect. The basal cisterns are patent. The posterior fossa and fourth ventricle are normal.The paranasal sinuses and mastoid air cells are clear. No calvarial lesions. Skull base is intact. Orbits and globes are unremarkable.IMPRESSION:1. No acute intracranial abnormality. No intracranial hemorrhage.2. Chronic microvascular ischemic changes.LOCATION: [id number] CT exam was performed according to our departmental dose optimization program, which includes automated exposure control, adjustment of the mA and/or kV according to the patient size and/or use of iterative reconstructive technique. Final Dictated by: MD Bond Melanie CDikellieated DT/TM: 10/27/2018 4:24 pmSigned by: MD Bond Melanie CSigned (Electronic Signature): 10/27/2018 4:25 pm
--- OUTSIDE RECORDS SUMMARY | 2019-09-24 17:48 | XMS REPORT ---
:1950 Author Organization [employer] Care Team Providers Name Role Phone [facility] Provider Role Unavailable Allergies No Known [...] Medications Results No Known Results Summary Purpose [employer] Submission
[2019-09-24 19:21] LABS: ALT/SGPT 12 U/L (12-78); AST/SGOT 11 U/L (15-37); Albumin 2.8 g/dL (3.4-5.0); Alkaline Phosphatase 50 U/L (45-117); BUN Blood Urea Nitrogen 22 mg/dL (7-18); Bicarbonate 31 mmol/L (21-32); Bilirubin Direct < 0.1 mg/dL (0-0.2); Bilirubin Total 0.2 mg/dL (0.2-1.0); Glucose Level 109 mg/dL (74-106); Lipase 60 U/L (73-393); Potassium 4.4 mmol/L (3.5-5.1); Protein, Total 7.5 g/dL (6.4-8.2); Sodium Level 143 mmol/L (136-145)
[2019-09-24] MEDS ORDERED: NA CHLORIDE 0.9% 1,000 ML ONE (19:35)
--- NOTE | 2019-09-24 20:47 | RAD REPORT ---
EXAM DESCRIPTION: CT - Chest Abd Pelvis Wo Con - 09/24/2019 8:05 pm CLINICAL HISTORY: fatigue, malaise, diarrhea, chest pain, abdominal pain COMPARISON: CTANGIO CHEST FOR PE dated 04/09/2013 TECHNIQUE: Axial 5 millimeter thick images of the chest abdomen and pelvis were obtained without con trast. Sagittal and coronal reformatted images were generated and reviewed. All CT scans are performed using dose optimization technique as appropriate and may include automated exposure control or mA/KV adjustment according to patient size. FINDINGS: Small focus of consolidation is present in the posteromedial right lung base with a trace amount of pleural effusion. Minimal scarring or stranding present in the posterior gutter on the left . A 10 millimeter spiculated area of density is present in the medial right apex. An 8 millimeter nod ule is present in the posterior mid right lung field. These are new from from 2012. Nodules are nonsp ecific. No pneumothorax or pleural effusion. No chest wall mass or abnormal axillary lymphadenopathy seen. Mediastinal and hilar regions show no mass or lymphadenopathy. No significant cardiac findin g. The liver, spleen and pancreas show no significant findings. Gallbladder and biliary tree are normal . No hydronephrosis or obstructing calculus. No acute renal finding suspected. Isodense masses and pyel onephritis are not excluded. No adrenal abnormalities. No urinary bladder abnormalities. No dilated bowel loops or focal ball bowel wall thickening. No free air, free fluid or inflammatory stranding. No mass or bulky lymphadenopathy. Fat only periumbilical hernia present. Diverticulosis i s present without diverticulitis. Disc and bony degenerative changes are present. Numerous areas of sclerotic change are present in the thoracic spine associated with areas of endplate spurring. IMPRESSION: Small posteromedial right lung base pneumonia. Right lung field pulmonary nodules are present. No prior imaging can establish long-term stability. W ith a 10 mm maximum size, the recommendation for follow-up would be repeat CT imaging in 3-[address] abdomen was imaging shows no acute or active process. Full assessment is limited in the absence of IV contrast.
[2019-09-24] MEDS ORDERED: levoFLOXacin 500 MG TAB ONE (21:32)
[2019-09-24] MEDS ORDERED: ALBUTEROL 2.5 MG/3 ML NEB SOL ONE (21:33)
[2019-09-24 21:46] LABS: Absolute Lymphocytes (CBC) 0.8 K/uL (0.7-4.9); Basophils % 0.2 % (0-1.3); Hematocrit 37.5 % (36.0-45.0); Lymphocytes % 16.7 % (15.3-44.8); MPV 9.2 fL (7.6-11.3); RBC Red Blood Cell Count 4.33 M/uL (3.86-4.86)
--- NOTE | 2019-09-24 22:08 | ER ---
Nurse's Notes [facility] Name: Annita Abreu Age: 69 yrs Sex: Female : 1950 Arrival Date: 09/24/2019 Time: 17:53 Bed 14 Private MD: Diagnosis: Pneumonia, unspecified organism;Diarrhea, unspecified;Renal insufficiency Presentation: 09/23 17:53 Chief complaint: EMS states: she has been having epigastric pain for 2-3 weeks. n/v,d mg2 for 3 days. denies fever and cough. BGL- 113. O2 was 87 RA and went up to 98% on NRM. BP was also on the low side. Coronavirus screen: The patient has NOT traveled to a country currently being monitored by the CDC within the last 14 days. Proceed with normal triage procedures. The patient has NOT had contact with any known and/or suspected case of coronavirus. Proceed with normal triage procedures. Ebola Screen: No symptoms or risks identified at this time. Initial Sepsis Screen: Does the patient meet any 2 criteria? No. Patient's initial sepsis screen is negative. Does the patient have a suspected source of infection? No. Patient's initial sepsis screen is negative. Risk Assessment: Do you want to hurt yourself or someone else? Patient reports no desire to harm self or others. 17:53 Method Of Arrival: EMS: [facility] mg2 17:53 Acuity: HUGH 3 mg2 17:58 Care prior to arrival: Medication(s) given: Normal saline infusion, 150 ml zofran 4 mg. mg2 18:45 Onset of symptoms was August 2019. mg2 Historical: - Allergies: 17:58 No Known Allergies; mg2 - PMHx: 17:58 Anemia; Asthma; GERD; Hepatitis; Hypertension; Rheumatoid Arthritis; mg2 - PSHx: 17:58 Hysterectomy; mg2 - Immunization history:: Flu vaccine is not up to date. - Social history:: Smoking status: Patient denies any tobacco usage or history of. Screenin:44 Abuse screen: Denies threats or abuse. Denies injuries from another. Nutritional mg2 screening: No deficits noted. Tuberculosis screening: No symptoms or risk factors identified. Fall Risk IV access (20 points). Ambulatory Aid- Furniture (30 pts.). Gait- Normal/Bed Rest/Wheelchair (0 pts). Assessment: 18:43 General: Appears in no apparent distress. comfortable, Behavior is calm, cooperative. mg2 Pain: Complains of pain in abdomen Pain does not radiate. Pain currently is 6 out of 10 on a pain scale. Quality of pain is described as aching, Pain began gradually, Is intermittent. Neuro: Level of Consciousness is awake, alert, obeys commands, Oriented to person, place, time, situation. Cardiovascular: Capillary refill < 3 seconds Patient's skin is warm and dry. Respiratory: Airway is patent Respiratory effort is even, unlabored, Respiratory pattern is regular, symmetrical. GI: Reports diarrhea, epigastric pain, nausea, vomiting. : No signs and/or symptoms were reported regarding the genitourinary system. EENT: No signs and/or symptoms were reported regarding the EENT system. Derm: Skin is intact, is healthy with good turgor, Skin is pink, warm \T\ dry. normal. Musculoskeletal: Circulation, motion, and sensation intact. Capillary refill < 3 seconds. 19:05 Reassessment: Patient appears in no apparent distress at this time. Patient and/or aa1 family updated on plan of care and expected duration. Pain level reassessed. Patient is alert, oriented x 3, equal unlabored respirations, skin warm/dry/pink. Awaiting CT scan. 20:00 Reassessment: Patient appears in no apparent distress at this time. Patient and/or aa1 family updated on plan of care and expected duration. Pain level reassessed. Patient is alert, oriented x 3, equal unlabored respirations, skin warm/dry/pink. Pt taken to CT at this time. 21:00 Reassessment: Patient appears in no apparent distress at this time. Patient and/or aa1 family updated on plan of care and expected duration. Pain level reassessed. Patient is alert, oriented x 3, equal unlabored respirations, skin warm/dry/pink. Awaiting completion of test results. 22:35 Reassessment: Patient appears in no apparent distress at this time. Patient is alert, aa1 oriented x 3, equal unlabored respirations, skin warm/dry/pink. Discussed d/c \T\ f/u instructions with pt; denies questions or concerns at this time. Patient states feeling better. Patient states symptoms have improved. Vital Signs: 17:53 BP 128 / 93; Pulse 73; Resp 18; Temp 98.3; Pulse Ox 95% on R/A; Weight 136.08 kg; mg2 Height 5 ft. 7 in. (170.18 cm); Pain 7/10; 18:45 BP 128 / 93; Pulse 72; Resp 22; Temp 98.0(O); Pulse Ox 98% on R/A; mh5 20:00 BP 131 / 92; Pulse 75; Resp 22; Pulse Ox 96% on R/A; aa1 21:10 BP 141 / 95; Pulse 77; Resp 18; Pulse Ox 97% on R/A; aa1 22:35 BP 137 / 93; Pulse 74; Resp 20; Temp 98.2; Pulse Ox 95% on R/A; Pain 0/10; aa1 17:53 Body Mass Index 46.99 (136.08 kg, 170.18 cm) mg2 ED Course: 17:53 Patient arrived in ED. mg2 17:56 Triage completed. mg2 17:57 Arm band placed on. mg2 18:32 Kvng Garcias, RN is Primary Nurse. mg2 18:44 Patient has correct armband on for positive identification. Placed in gown. Call light mg2 in reach. Side rails up X2. Door closed. Warm blanket given. 18:44 Patient has correct armband on for positive identification. Placed in gown. Bed in low mh5 position. Call light in reach. Side rails up X2. Adult w/ patient. Warm blanket given. skiver uppers or linings on. Pulse ox on. NIBP on. 18:44 No provider procedures requiring assistance completed. Maintain EMS IV. Dressing mg2 intact. Site clean \T\ dry. Gauge \T\ site: 20 \T\ RH. 18:52 Gypsy Sinclair, HERNANDO is PHCP. snw 18:52 Giovanni Murillo MD is Attending Physician. snw 20:05 CT Chest Abdomen Pelvis W/O Contrast In Process Unspecified. EDMS 22:35 IV discontinued, intact, bleeding controlled, No redness/swelling at site. Pressure aa1 dressing applied. Administered Medications: 19:37 Drug: NS 0.9% 1000 ml Route: IV; Rate: 75 ml/hr; Site: right hand; aa1 21:32 Drug: LevaQUIN 500 mg Route: PO; aa1 21:45 Follow up: Response: No adverse reaction; Medication administered at discharge. aa1 21:32 Drug: Albuterol 2.5 mg Route: Inhalation; aa1 Outcome: 22:07 Discharge ordered by . dayana 22:35 Discharged to home via wheelchair, with family. aa1 22:35 Condition: good 22:35 Discharge instructions given to patient, Instructed on discharge instructions, follow up and referral plans. medication usage, Demonstrated understanding of instructions, follow-up care, medications, Prescriptions given X 3. 22:36 Patient left the ED. aa1 Signatures: Dispatcher [employer] EDAmaya Guerra RN RN aa1 Gypsy Sinclair, PLATING OPERATOR-C PLATING OPERATOR-Csnw Hiral Henderson 5 Kvng Garcias RN RN mg2
--- NOTE | 2019-09-24 22:08 | EDPHYS ---
Physician Documentation [facility] Name: Annita Abreu Age: 69 yrs Sex: Female : 1950 Arrival Date: 09/24/2019 Time: 17:53 Bed 14 Private MD: ED Physician Giovanni Murillo HPI: 09/23 21:42 This 69 yrs old Black Female presents to ER via EMS with complaints of feeling poorly, snw diarrhea, mild shortness of breath. 21:42 "just haven't been feeling good". Onset: The symptoms/episode began/occurred gradually, snw 1 week(s) ago, and became persistent. Severity of symptoms: At their worst the symptoms were mild moderate in the emergency department the symptoms have improved. It is unknown whether or not the patient has had similar symptoms in the past. The patient has been recently seen by a physician:. Historical: - Allergies: 17:58 No Known Allergies; mg2 - PMHx: 17:58 Anemia; Asthma; GERD; Hepatitis; Hypertension; Rheumatoid Arthritis; mg2 - PSHx: 17:58 Hysterectomy; mg2 - Immunization history:: Flu vaccine is not up to date. - Social history:: Smoking status: Patient denies any tobacco usage or history of. ROS: 21:40 Constitutional: Negative for fever, chills, and weight loss, Eyes: Negative for injury, snw pain, redness, and discharge, ENT: Negative for injury, pain, and discharge, Neck: Negative for injury, pain, and swelling, Cardiovascular: Negative for chest pain, palpitations, and edema, Skin: Negative for injury, rash, and discoloration, Neuro: Negative for headache, weakness, numbness, tingling, and seizure. 21:40 Back: Negative for injury and pain, : Negative for injury, bleeding, discharge, and swelling, MS/Extremity: Negative for injury and deformity, Psych: Negative for depression, anxiety, suicide ideation, homicidal ideation, and hallucinations. 21:40 Abdomen/GI: Positive for abdominal pain, diarrhea. Exam: 21:08 Head/Face: Normocephalic, atraumatic. Eyes: Pupils equal round and reactive to light, snw extra-ocular motions intact. Lids and lashes normal. Conjunctiva and sclera are non-icteric and not injected. Cornea within normal limits. Periorbital areas with no swelling, redness, or edema. ENT: Nares patent. No nasal discharge, no septal abnormalities noted. Tympanic membranes are normal and external auditory canals are clear. Oropharynx with no redness, swelling, or masses, exudates, or evidence of obstruction, uvula midline. Mucous membranes moist. Neck: Trachea midline, no thyromegaly or masses palpated, and no cervical lymphadenopathy. Supple, full range of motion without nuchal rigidity, or vertebral point tenderness. No Meningismus. Chest/axilla: Normal chest wall appearance and motion. Nontender with no deformity. No lesions are appreciated. Cardiovascular: Regular rate and rhythm with a normal S1 and S2. No gallops, murmurs, or rubs. Normal PMI, no JVD. No pulse deficits. Respiratory: Lungs have equal breath sounds bilaterally, clear to auscultation and percussion. No rales, rhonchi or wheezes noted. No increased work of breathing, no retractions or nasal flaring. Abdomen/GI: Soft, non-tender, with normal bowel sounds. No distension or tympany. No guarding or rebound. No evidence of tenderness throughout. Back: No spinal tenderness. No costovertebral tenderness. Full range of motion. Skin: Warm, dry with normal turgor. Normal color with no rashes, no lesions, and no evidence of cellulitis. MS/ Extremity: Pulses equal, no cyanosis. Neurovascular intact. Full, normal range of motion. Neuro: Awake and alert, GCS 15, oriented to person, place, time, and situation. Cranial nerves II-XII grossly intact. Motor strength 5/5 in all extremities. Sensory grossly intact. Cerebellar exam normal. Pt saw PCP Saturday to have home health transferred over to new PCP. Pt only stands to transfer Psych: Awake, alert, with orientation to person, place and time. Behavior, mood, and affect are within normal limits. 21:08 Constitutional: The patient appears alert, awake, frail, obese. Vital Signs: 17:53 BP 128 / 93; Pulse 73; Resp 18; Temp 98.3; Pulse Ox 95% on R/A; Weight 136.08 kg; mg2 Height 5 ft. 7 in. (170.18 cm); Pain 7/10; 18:45 BP 128 / 93; Pulse 72; Resp 22; Temp 98.0(O); Pulse Ox 98% on R/A; mh5 20:00 BP 131 / 92; Pulse 75; Resp 22; Pulse Ox 96% on R/A; aa1 21:10 BP 141 / 95; Pulse 77; Resp 18; Pulse Ox 97% on R/A; aa1 22:35 BP 137 / 93; Pulse 74; Resp 20; Temp 98.2; Pulse Ox 95% on R/A; Pain 0/10; aa1 17:53 Body Mass Index 46.99 (136.08 kg, 170.18 cm) mg2 MDM: 19:04 Patient medically screened. snw 22:07 Data reviewed: vital signs, nurses notes. Data interpreted: Pulse oximetry: on room air snw is 95 %. Interpretation: acceptable. Counseling: I had a detailed discussion with the patient and/or guardian regarding: the historical points, exam findings, and any diagnostic results supporting the discharge/admit diagnosis, lab results, radiology results, the need for outpatient follow up, to return to the emergency department if symptoms worsen or persist or if there are any questions or concerns that arise at home. Response to treatment: the patient's symptoms have mildly improved after treatment, the patient's symptoms have markedly improved after treatment. Special discussion: Based on the history and exam findings, there is no indication for further emergent testing or inpatient evaluation. I discussed with the patient/guardian the need to see the primary care provider for further evaluation of the symptoms. 09/23 17:57 Order name: Basic Metabolic Panel; Complete Time: 19:22 mg2 09/23 17:57 Order name: CBC with Diff; Complete Time: 21:50 mg2 09/23 17:57 Order name: Creatinine for Radiology; Complete Time: 19:33 mg2 09/23 17:57 Order name: Hepatic Function; Complete Time: 19:22 mg2 09/23 17:57 Order name: Lipase; Complete Time: 19:22 mg2 09/23 19:28 Order name: CT Chest Abdomen Pelvis W/O Contrast; Complete Time: 20:55 snw 09/23 17:57 Order name: IV Saline Lock; Complete Time: 18:32 mg2 09/23 17:57 Order name: Labs collected and sent; Complete Time: 18:54 mg2 09/23 18:37 Order name: Misc. Order: please recollect CBC; Complete Time: 18:54 la1 09/23 21:07 Order name: PO challenge: juice per pt request; Complete Time: 21:33 snw Administered Medications: 19:37 Drug: NS 0.9% 1000 ml Route: IV; Rate: 75 ml/hr; Site: right hand; aa1 21:32 Drug: LevaQUIN 500 mg Route: PO; aa1 21:45 Follow up: Response: No adverse reaction; Medication administered at discharge. aa1 21:32 Drug: Albuterol 2.5 mg Route: Inhalation; aa1 Disposition: 09/24 07:55 Co-signature as Attending Physician, Giovanni Murillo MD I agree with the assessment and butch plan of care. Disposition: 09/24/19 22:07 Discharged to Home. Impression: Pneumonia, unspecified organism, Diarrhea, unspecified, Renal insufficiency. - Condition is Stable. - Discharge Instructions: Food Choices to Help Relieve Diarrhea, Adult, Diarrhea, Adult, Community-Acquired Pneumonia, Adult, Rehydration, Adult. - Prescriptions for Levaquin 500 mg Oral Tablet - take 1 tablet by ORAL route once daily for 7 days; 7 tablet. Zofran 4 mg Oral Tablet - take 1 tablet by ORAL route every 12 hours As needed; 6 tablet. Albuterol Sulfate 90 mcg/actuation - inhale 1-2 puff by INHALATION route every 4-6 hours; 1 Inhaler. - Medication Reconciliation Form, Thank You Letter, Antibiotic Education, Prescription Opioid Use form. - Follow up: Emergency Department; When: As needed; Reason: Worsening of condition. Follow up: Private Physician; When: 2 - 3 days; Reason: Recheck today's complaints, Continuance of care, Re-evaluation by your physician. Signatures: Dispatcher [employer] Amaya Rivers RN RN aa1 Giovanni Murillo MD MD cha Therrien, Shelly, FNP-C ASSOCIATE PROFESSOR OF LAW-Csnw Tip Hsu FNP-C FNP-ClaKvng Lane RN RN mg2 Corrections: (The following items were deleted from the chart) 09/23 22:36 22:07 09/24/2019 22:07 Discharged to Home. Impression: Pneumonia, unspecified organism; aa1 Diarrhea, unspecified; Renal insufficiency. Condition is Stable. Forms are Medication Reconciliation Form, Thank You Letter, Antibiotic Education, Prescription Opioid Use. Follow up: Emergency Department; When: As needed; Reason: Worsening of condition. Follow up: Private Physician; When: 2 - 3 days; Reason: Recheck today's complaints, Continuance of care, Re-evaluation by your physician. dayana
[2019-09-24 23:01] VITALS: BP 137/93; TEMP 98.2; O2SAT 95
== END 2019-09-24 22:36 | disposition home or self-care (01) ==
LOC: ER 17:44
DX: J18.9 Pneumonia, unspecified organism (principal); N28.9 Disorder of kidney and ureter, unspecified; I10 Essential (primary) hypertension
CPT/HCPCS: 85025; 80048; 36415; 80076; 83690; 71250; 74176; 99285; J7030

== ENCOUNTER 2023-11-19 15:49 | Emergency (ER) | payer OTHER ==
--- OUTSIDE RECORDS SUMMARY | 2023-11-19 15:53 | XMS REPORT | Clinical Summary ---
Author Name Unknown Organization [facility] Address [address] [place] [address] Care Team Providers Care Computer Aided Design Operator Name Role Phone Sasha Jacobs MD Primary Care Provider [phone] Sergey Del Angel MD Unavailable Arun Combs DO Unavailable Piero Lopez MD Unavailable Walter Alvarado MD Unavailable Barrington Montelongo MD Unavailable [phone] Garry Reyes MD Unavailable [phone] Camron Tapia MD Unavailable [phone] Sasha Jacobs MD Unavailable [phone] Dolores Hardy MD Unavailable [phone] Calli Key MD Unavailable [phone] Mitchell Calderon MD Unavailable [phone] Juan Delaney MD Unavailable Mayelin Bacon Unavailable Rodríguez Mccall Unavailable Miguel Angel Bui MD Unavailable Pieter, Winnie M PA Unavailable [phone] Jewell Shin MD Unavailable Unav ailable Hiral Wilburn CHILDREN'S TUTOR Unavailable Neela Roldan PA Unavailable Suzi Muir CHILDREN'S TUTOR Unavailable [phone] Kit Mccormick MD Unavailable Leah Garrido MD Unavailable Wanda Baldwin MD Unavailable Pushpa Garcia PA Unavailable Imelda Reed MD Unavailable Anson Petty MD Unavailable [phone] Tim Bryan MD Unavailable Martin Lagos MD Unavailable Priti Lomeli MD Unavailable [phone] Ana Leon CHILDREN'S TUTOR Unavailable Dami Su MD Unavailable Unavailable Kristyn Mireles PA Unavailable Dawson Camarillo PA Unavailable Larsisa Leal PA Unavailable Chhaya Powers MD Unavailable [phone] Chandrika Silver Unavailable Luis Elias MD Unavailable Marcela Whiting DDS Unavailable Ivan English MD Unavailable Guero Luevano MD Unavailable [phone] Sofia Guthrie MD Unavailable Salima Isaac MD Unavailable Allergies No known active allergies Medications Medication Sig Dispensed Refills Start Date End Date Status zolpidem (AMBIEN) 5 mg tablet Take 1 tablet by mouth nightly as needed. Indication: sleep. 0 Active lisinopril (PRINIVIL,ZESTRIL) 20 mg tablet Take 20 mg by mouth daily. 0 06/12/2017 Active levalbuterol (XOPENEX HFA) 45 mcg/puff inhaler Inhale by mouth as needed for wheezing or shortness of breath. 0 Active atorvastatin (LIPITOR) 20 mg tablet Take 20 mg by mouth at bedtime. 0 03/31/2019 Active chlorhexidine (PAROEX) 0.12% mouthwash (alcohol-free)Indic ations:Multiple myeloma,Partial loss of teeth due to other specified cause, not otherwise specified,Retained dental root,Periapical abscess Swish and spit 15 mL by mouth twice daily. 473 mL 12 04/16/2019 Active valACYclovir (VALTREX) 500 mg tabletIndications:M ultiple myeloma Take 1 tablet (500 mg) by mouth daily. Indication: infection prophylaxis. Refill. To prevent viral infections. 30 tablet 3 06/16/2019 Active nortriptyline (PAMELOR) 10 mg capsuleIndications: Lumbosacral spondylosis without myelopathy,Osteoart hritis of knee, not otherwise specified Take 1 capsule (10 mg) by mouth at bedtime. 30 capsule 0 07/14/2019 Active gabapentin (NEURONTIN) 300 mg capsuleIndications: Lumbosacral spondylosis without myelopathy,Osteoart hritis of knee, not otherwise specified Take 2 capsules (600 mg) by mouth 3 (three) times a day. 180 capsule 0 07/28/2019 Active sucralfate (CARAFATE) 1 g tablet Take 1 g by mouth twice daily. 0 Active pantoprazole (PROTONIX) 40 mg EC tabletIndications:M ultiple myeloma Take 1 tablet (40 mg) by mouth daily. 90 tablet 3 05/12/2020 Active furosemide (LASIX) 20 mg tabletIndications:M ultiple myeloma Take 1 tablet (20 mg) by mouth every other day for swelling (edema). 60 tablet 3 05/23/2020 Active potassium chloride (K-DUR,KLOR-CON M) 20 mEq tabletIndications:M ultiple myeloma Take 1 tablet (20 mEq) by mouth every other day. This is a potassium supplement. Take with Lasix (Furosemide). 60 tablet 3 05/23/2020 Active pantoprazole (Protonix) 40 mg EC tabletIndications:G shameka-esophageal reflux disease without esophagitis, not otherwise specified Take 1 tablet (40 mg) by mouth daily with breakfast. Take 1 tablet daily 30 minutes before breakfast 90 tablet 1 08/11/2020 Active Active Problems Problem Noted Date Diagnosed Date Chronic liver disease 07/10/2019 Steatosis of liver 07/10/2019 Impaired mobility 05/28/2019 Morbid obesity 05/28/2019 Vaginal discharge 05/28/2019 Hypertension 05/05/2019 Malignant neoplasm of endometrium 04/13/2019 Cancer Staging:Clinical stage from 05/06/2019:Stage IA(Primary) - Signed by Dayana Lacy NP on 05/28/2019 Overview: Added automatically from request for surgery [id number] Malignant neoplasm of corpus uteri 04/07/2019 Lumbosacral spondylosis without myelopathy 03/04 Osteoarthritis of knee 03/04/2019 Multiple myeloma 02/03/2019 Personal history of colonic polyp 11/07/2017 Overview: Added automatically from request for surgery [id number] Immunizations Name Administration Dates Next Due Pfizer SARS-CoV-2 Vaccination (Purple Cap) 09/0509/26/2020 Pneumococcal Conjugate 13-Valent 08/04/2020 Surgical History Surgery Date Site/Laterality Comments APPENDECTOMY ANES EGD COLONOSCOPY BONE MARROW ASPIRATION DENTAL SURGERY TOTAL KNEE ARTHROPLASTY 05/20/2017 Left DILATION AND CURETTAGE OF UTERUS 2 - 07/14/1972 MS LAPS TOTAL HYSTERECT 250 GM/< W/RMVL TUBE/OVARY 05/06/2019 Abdomen/Bilateral Procedure: LAPAROSCOPY, SURGICAL, WITH TOTAL HYSTERECTOMY, WITH OR WITHOUT REMOVAL OF TUBE(S) AND/OR OVARY(S); Surgeon: Salima Isaac MD; Location: MAIN OR; Service: REPAIRER ART OBJECTS - GYNECOLOGIC ONCOLOGY MS INTRAOP SENTINEL LYMPH NO DE ID W/DYE INJECTION 05/06/2019 N/A Procedure: INTRAOPERATIVE LYMPHATIC MAPPING; Surgeon: Salima Isaac MD; Location: MAIN OR; Service: REPAIRER ART OBJECTS - GYNECOLOGIC ONCOLOGY MS ENTEROLSS FRING INTSTINAL ADHESION SPX 05/06/2019 Abdomen/N/A Procedure: FREEING OF INTESTINAL ADHESION; Surgeon: Salima Isaac MD; Location: MAIN OR; Service: REPAIRER ART OBJECTS - GYNECOLOGIC ONCOLOGY MS ESOPHAGOGASTRODUODENOSCOP Y TRANSORAL DIAGNOSTIC 07/20/2019 Esophagus/N/A Procedure: DIAGNOSTIC UPPER GASTROINTESTINAL ENDOSCOPY; Surgeon: Laura Higuera MD; Location: MAIN ENDOSCOPY; Service: GASTROENTEROLOGY MS COLONOSCOPY FLX DX W/POONAM J SPEC WHEN PFRMD 07/20/2019 N/A Procedure: DIAGNOSTIC FLEXIBLE COLONOSCOPY PROXIMAL TO SPLENIC FLEXURE; Surgeon: Laura Higuera MD; Location: MAIN ENDOSCOPY; Service: GASTROENTEROLOGY Medical History Medical History Date Comments Multiple myeloma Hypertension Hepatitis B and hepatitis C prio r infection Cytomegaloviral disease Acute nontraumatic kidney injury Osteoarthritis Substance abuse Insomnia Gastroesophageal reflux disease Diverticulitis Asthma Chronic constipation Chronic diarrhea Social History Tobacco Use Types Packs/Day Years Used Date Smoking Tobacco: Former Cigarettes Q uit: 1991 Smokeless Tobacco: Never Alcohol Use Standard Drinks/Week Comments No 0 (1 standard drink = 0.6 oz pur e alcohol) Sex and Gender Information Value Date Recorded Sex Assigned at Not on file Gender Identity Not on file Sexual Orientation Not on file Obstetrics History Para Term AB IAB SAB Ectopic Multiple Livin g Live Births 1 1 1 Date Outcome GA Total Labor Labor/2nd/3rd Weight Sex Delivery Anes PTL Laine A1 A5 Name Cl in Term Plan of Treatment Health Maintenance Due Date Last Done Comments COVID-19 Vaccine (2022-08 4 season) 2023 12/05/2021, 07/18/2021, 09/26/2020, Additional history exists Influenza Vaccine 03/15/2024 Medical Devices Implanted Type Area Alarm Field Technician Device Identifier Shelf Expiration Date Model / Serial / Lot Metalware Metalware Left: Knee Advance Directives Latest Code Status on File Code Status Date Activated Date Inactivated Comments Full Code 05/06/2019 7:05 PM 05/07/2019 4:26 PM Care Teams Computer Aided Design Operator Relationship Specialty Start Date End Date Sasha Jacobs MD [address] [place] [address] [id number] PCP - General 09/14/15 Sergey Del Angel MD [address] [place] [address] [phone] PCP - External Referring 04/21/14 Luis Elias MD [address] [place] [address] [phone] PCP - External Follow Up A Pain Management 05/14/19 Arun Combs DO [address] [place] [address] [phone] Physician 09/21/15 Piero Lopez MD [address] [place] [address] [phone] Physician 09/21/15 Walter Alvarado MD [address] [place] [address] 51703 Physician 09/21/15 Barrington Montelongo MD [address] [place] [address] 08498 Physician 09/21/15 Garry Reyes MD [address] [place] [address] [phone] Physician 09/21/15 Camron Tapia MD [address] [place] [address] [phone] Physician 09/21/15 Sasha Jacobs MD [address] [place] [address] [phone] Physician 09/21/15 Dolores Hardy MD [address] [place] [address] 35667 Physician 09/21/15 Calli Key MD [address] [place] [address] 36372 Physician 09/21/15 Mitchell Calderon MD [address] [place] [address] 43529 Physician 09/21/15 Juan Delaney MD [address] [place] [address] 26817 Physician 09/21/15 Mayelin Bacon PA [address] [place] [address] [phone] Physician Home Organizer 09/21/15 Rodríguez Mccall PA [address] [place] [address] 48403 Physician Home Organizer 09/21/15 Miguel Angel Bui MD [address] [place] [address] 07374 Physician 09/21/15 Winnie Stapleton PA [address] [place] [address] 91630 Physician Home Organizer 09/21/15 Jewell Shin MD Physician 09/21/15 Hiral Wilburn APRN [address] [place] [address] [phone] Nurse Practitioner 09/21/15 Neela Roldan PA [address] [place] [address] [phone] Physician Home Organizer 09/21/15 Suzi Muir APRN [address] [place] [address] 41736 Nurse Practitioner 09/21/15 Kit Mccormick MD [address] [place] [address] 70036 Physician 09/21/15 Leah Garrido MD [address] [place] [address] 72972 Physician 09/21/15 Wanda Baldwin MD [address] [place] [address] 42468 Physician 09/21/15 Pushpa Garcia PA [address] [place] [address] 63234 Physician Home Organizer 09/21/15 Imelda Reed MD [address] [place] [address] 39719 Physician 09/21/15 Anson Petty MD [address] [place] [address] 71916 Physician 09/21/15 Tim Bryan MD [address] [place] [address] [phone] Physician 09/21/15 Martin Lagos MD [address] [place] [address] 01675 Physician 09/21/15 Priti Lomeli MD [address] [place] [address] 28117 Physician 09/21/15 Ana Leon, CHILDREN'S TUTOR [address] [place] [address] 42767 Nurse Practitioner 09/21/15 Dami Su MD Physician 09/21/15 Kristyn Mireles PA [address] [place] [address] 25230 Physician Home Organizer 09/21/15 Dawson Camarillo PA [address] [place] [address] 91889 Physician Home Organizer 09/21/15 Larissa Leal PA [address] [place] [address] 31711 Physician Home Organizer 09/21/15 Chhaya Powers MD [address] [place] [address] 70335 Physician 09/21/15 Chandrika Silver [address] [place] [address] 39764 Hematology and Oncology 08/12/18 Marcela Whiting, DDS [address] [place] [address] 19460 Consulting Physician Dental Oncology 04/15/19 Ivan English MD [address] [place] [address] 60464 Consulting Physician Gastroenterology, Hepatology and Nutrition 08/11/20 Guero Luevano MD [address] [place] [address] 90480 Consulting Physician Stem Cell Transplant 03/12/19 Sofia Guthrie MD [address] [place] [address] 37773 Consulting Physician Radiation Oncology 06/23/19 Salima Isaac MD [address] [place] [address] Consulting Physician Gynecological Oncology 03/19/19
[2023-11-19] MEDS ORDERED: MECLIZINE HCL 12.5 MG TAB ONE (16:02)
[2023-11-19] MEDS ORDERED: NA CHLORIDE 0.9% 500 ML ONE (16:02)
[2023-11-19 16:48] LABS: Absolute Basophils 0.1 K/uL (0-0.5); Absolute Eosinophils 0.1 K/uL (0-0.5); Absolute Lymphocytes (CBC) 1.8 K/uL (0.7-4.9); Absolute Monocytes 0.5 K/uL (0.1-1.3); Absolute Neutrophil 2.9 K/uL (1.8-8.0); Basophils % 1.4 % (0-1.3); Eosinophils % 1.4 % (0-4.4); Hematocrit 38.8 % (36.0-45.0); Hemoglobin 12.6 g/dL (12.0-15.0); Lymphocytes % 33.3 % (15.3-44.8); MCH 29.9 pg (27.0-35.0); MCHC 32.5 g/dL (32.0-36.0); MCV 92.3 fL (80-100); MPV 8.7 fL (7.6-11.3); Monocytes % 9.8 % (3.3-12.3); Neutrophils % 54.1 % (41.7-73.7); Platelets 189 thou/uL (152-406); RBC Red Blood Cell Count 4.21 M/uL (3.86-4.86)
[2023-11-19 17:09] LABS: Albumin 3.1 g/dL (3.4-5.0); Albumin/Globulin Ratio 0.7 (1.1-1.8); Alkaline Phosphatase 59 U/L (45-117); Anion Gap 4.9 mEq/L (5.0-15.0); BUN Blood Urea Nitrogen 17 mg/dL (7-18); Bicarbonate 35 mEq/L (21-32); Bilirubin Total 0.3 mg/dL (0.2-1.0); Globulin 4.4 g/dL (2.3-3.5); Glomerular Filtration Rate 58 ml/min (=/>90); Glucose Level 78 mg/dL (74-106); Potassium 3.9 mEq/L (3.5-5.1); Protein, Total 7.5 g/dL (6.4-8.2); Sodium Level 140 mEq/L (136-145); Troponin High Sensitivity 10.8 pg/mL (<58.9)
--- NOTE | 2023-11-19 17:17 | RAD REPORT ---
EXAM DESCRIPTION: Genet Single View11/19/2023 4:35 pm CLINICAL HISTORY: syncope COMPARISON: Chest Single View dated 07/06/2018; Chest Single View dated 07/03/2018; Chest Single Vie w dated 06/03/2017; CHEST SINGLE VIEW dated 04/10/2013 TECHNIQUE: Portable AP view of the chest. FINDINGS: The lungs are clear although noninclusion of the right peripheral costophrenic angle limit s evaluation. No pneumothorax or effusion. The cardiomediastinal contours are unremarkable. IMPRESSION: No acute cardiopulmonary process.
[2023-11-19 17:50] LABS: ALT/SGPT < 14 U/L (13-56); AST/SGOT < 10 U/L (15-37); Bilirubin Direct < 0.2 mg/dL (0-0.2); Bilirubin Indirect, Calculated 0.1 mg/dL (0.2-0.8)
[2023-11-19 18:04] LABS: PTT, Activated Partial Thromb 33.6 SECONDS (24.3-36.9); Protime INR 1.09
--- NOTE | 2023-11-19 18:44 | RAD REPORT ---
EXAM DESCRIPTION: CT - Head Brain Wo Cont - 11/19/2023 6:14 pm CLINICAL HISTORY: syncope, vertigo COMPARISON: No comparisons TECHNIQUE: Noncontrast head CT images were obtained without IV contrast. Multiplanar reformats were generated and reviewed. All CT scans are performed using dose optimization technique as appropriate and may include automated exposure control or mA/KV adjustment according to patient size. FINDINGS: No intracranial hemorrhage, mass, or edema. Midline structures are unremarkable. Normal ventricular caliber for age. Slade-white matter differentiation is preserved, without evidence of acute infarct. No abnormal extra- axial fluid collections. Mastoid air cells and visualized portions of the paranasal sinuses are clear. No acute bony findings. IMPRESSION: No evidence of an acute intracranial process.
[2023-11-19 18:59] LABS: Specific Gravity 1.018 (1.005-1.030); Sqamous Epithelial <5 /HPF (None Seen); Urine Bacteria None Seen /HPF (<20); Urine Bilirubin NEGATIVE (Negative); Urine Blood Negative (Negative); Urine Clarity Turbid (Clear); Urine Color Light-Yellow (Yellow); Urine Culture Reflex Order NOT NEEDED; Urine Glucose NEGATIVE (Negative); Urine Ketones NEGATIVE (Negative); Urine Microscopic Reflex YN ORDER UMIC; Urine Nitrite NEGATIVE (Negative); Urine Protein NEGATIVE (Negative); Urine RBC <5 /HPF (None Seen); Urine Urobilinogen Normal (Normal); Urine WBC <5 /HPF (<5)
--- NOTE | 2023-11-19 19:24 | RAD REPORT ---
EXAM DESCRIPTION: CT - Abdomen Pelvis W Contrast - 11/19/2023 6:19 pm CLINICAL HISTORY: ABD PAIN COMPARISON: Chest Abd Pelvis Wo Con dated 09/24/2019 TECHNIQUE: Thin cut axial CT imaging of the abdomen and pelvis was performed following intravenous a dministration of 100 mL Isovue 300. Multiplanar reformats were generated and reviewed. All CT scans are performed using dose optimization technique as appropriate and may include automated exposure control or mA/KV adjustment according to patient size. FINDINGS: No suspicious findings in the lung bases. Crescentic 8 mm right middle lobe nodule is stab le The liver, adrenal glands, and pancreas show no suspicious findings. Ovoid mildly expansile subcapsul ar fluid density 5.8 x 4.3 cm collection along the inferior medial aspect of the spleen. Gallbladder and biliary tree are also without suspicious finding. Symmetric renal function is seen with no hydronephrosis or suspicious renal mass. No dilated bowel loops or bowel wall thickening. Mild sigmoid diverticulosis. No free air, free fluid or inflammatory stranding. Umbilical hernia containing fat. No suspicious mass or bulky lymphadenopa thy. The urinary bladder is without significant finding. No suspicious bony findings. Degenerative changes with degrees of canal stenosis most pronounced at L 3-4. 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 No other acute intra-abdominal process. Other incidental findings as above.
--- NOTE | 2023-11-19 19:38 | RAD REPORT ---
EXAM DESCRIPTION: CT - Head angio - 11/19/2023 6:14 pm CLINICAL HISTORY: vertigo;Dizziness COMPARISON: Head Brain Wo Cont dated 11/19/2023; Neck Angio dated 11/19/2023; Abdomen Pelvis W Contras t dated 11/19/2023 TECHNIQUE: Axial CT angiography images of the head was performed with multiplanar and maximum intens ity projection reconstructions. Images performed following intravenous administration of 100mL Isovue 370. All CT scans are performed using dose optimization technique as appropriate and may include automated exposure control or mA/KV adjustment according to patient size. FINDINGS: No evidence of large vessel occlusion. No evidence of aneurysm or dissection flap is detec jeremy. No flow-limiting stenosis or vascular malformation identified. Antegrade flow is seen in the vertebral arteries. The vertebral arteries are codominant. The visualized dural venous sinuses are grossly patent. IMPRESSION: No evidence of large vessel occlusion or flow-limiting stenosis.
--- NOTE | 2023-11-19 19:51 | RAD REPORT ---
EXAM DESCRIPTION: CT - Neck Angio - 11/19/2023 6:19 pm CLINICAL HISTORY: dizzy, vertigo COMPARISON: Head Brain Wo Cont dated 11/19/2023; Head angio dated 11/19/2023 TECHNIQUE: Axial CT angiography images of the neck was performed with multiplanar and maximum intens ity projection reconstructions. Images performed following intravenous administration of 100mL Isovue 370. All CT scans are performed using dose optimization technique as appropriate and may include automated exposure control or mA/KV adjustment according to patient size. Quantification of carotid stenosis, if any, is performed according to NASCET criteria. FINDINGS: A left aortic arch is identified with normal three vessel configuration of the great vesse ls. No significant flow abnormality is seen of the common carotid bilaterally. No significant stenosis is identified involving the cervical segments of both internal carotid arteri es. Normal flow is seen within both vertebral arteries. Right vertebral artery is dominant. IMPRESSION: No significant flow abnormality of the neck vessels is identified. CAROTID STENOSIS REFERENCE USING NASCET CRITERIA: % ICA stenosis = (1 - narrowest ICA diameter/diameter of distal cervical ICA) x 100. Mild - <50% stenosis. Moderate - 50-69% stenosis. Severe - 70-94% stenosis. Near occlusion - 95-99% stenosis. Occluded - 100% stenosis.
--- NOTE | 2023-11-19 19:52 | EDPHYS ---
Physician Documentation [facility] Name: Annita Abreu Age: 73 yrs Sex: Female : 1950 Arrival Date: 11/19/2023 Time: 15:49 Bed 17 Private MD: ED Physician Santos Hdz HPI: 11/18 15:57 This 73 yrs old Black Female presents to ER via EMS with complaints of Dizziness, rn Vomiting. 15:57 The patient presents with feeling faint, sense of spinning. Onset: The symptoms/episode rn began/occurred at an unknown time. Modifying factors: The symptoms are alleviated by holding head still, the symptoms are aggravated by movement of head, standing up, changing position. Severity of symptoms: At their worst the symptoms were moderate in the emergency department the symptoms have improved. The patient has experienced similar episodes in the past. Patient reports needed to use the bathroom today, upon getting up and standing got lightheaded and dizzy, made it to the bathroom and then had syncopal episode. Patient denies any injury from the fall. Does not recall the events of what happened. Patient reports has been having dizzy episodes for the last 6 months, happens frequently and tends to happen with movement of head or changing position. Denies focal weakness or numbness. Saw her physician earlier today for chronic leg pain. No recent medication changes that patient is aware of. Patient also reports of mild abdominal pain and states recent diagnosis of H. pylori. Historical: - Allergies: 15:55 No Known Allergies; db - PMHx: 15:55 Asthma; Anemia; GERD; Hypertension; Hepatitis; Rheumatoid Arthritis; db - Immunization history:: Adult Immunizations unknown. - Infectious Disease History:: Denies. - Social history:: Smoking status: Patient denies any tobacco usage or history of. - Family history:: not pertinent. - Hospitalizations: : No recent hospitalization is reported. ROS: 15:59 Constitutional: Negative for fever, chills, and weight loss, Eyes: Negative for injury, rn pain, redness, and discharge, Neck: Negative for injury, pain, and swelling, Cardiovascular: Negative for chest pain, palpitations, and edema, Respiratory: Negative for shortness of breath, cough, wheezing, and pleuritic chest pain, Abdomen/GI: Positive for abdominal pain and vomiting Back: Negative for injury and pain, : Negative for injury, bleeding, discharge, and swelling, MS/Extremity: Negative for injury and deformity, Skin: Negative for injury, rash, and discoloration, Neuro: Positive for generalized weakness and dizziness. No focal weakness or numbness. No vision change. No speech change. Exam: 15:59 Constitutional: This is a well developed, well nourished patient who is awake, alert, rn and in no acute distress. Clothing covered with emesis. Head/Face: Normocephalic, atraumatic. ENT: Dry mucous membranes Cardiovascular: Regular rate and rhythm. No pulse deficits. Respiratory: No increased work of breathing, no retractions or nasal flaring. Abdomen/GI: Soft, mild epigastric tenderness. No masses. No rebound. MS/ Extremity: Pulses equal, no cyanosis. Neuro: Awake and alert, GCS 15, oriented to person, place, time, and situation. Cranial nerves II-XII grossly intact. Motor strength 4/5 in all extremities. Sensory grossly intact. Cerebellar exam normal. No nystagmus 16:36 ECG was reviewed by the Attending Physician. rn Vital Signs: 15:54 BP 99 / 76; Pulse 67; Resp 18; Pulse Ox 94% 2 lpm ; db 16:45 BP 121 / 60; Pulse 59; Resp 16; Pulse Ox 97% ; nj1 17:35 BP 143 / 63; Pulse 62; Resp 17; Pulse Ox 97% ; nj1 18:49 BP 155 / 80; Pulse 67; Resp 18; Pulse Ox 98% on R/A; nj1 19:22 BP 157 / 62; Pulse 59; Pulse Ox 99% ; nj1 19:51 BP 152 / 74; Pulse 62; Resp 18 S; Pulse Ox 96% on R/A; as6 22:15 BP 149 / 65; Pulse 62; Resp 16; Pulse Ox 97% on R/A; tl4 22:45 BP 156 / 54; Pulse 65; Resp 18; Pulse Ox 96% on R/A; tl4 23:25 BP 168 / 64; Pulse 73; Resp 18; Temp 98.5(O); Pulse Ox 97% on R/A; Pain 6/10; tl4 23:25 Pain Scale: Adult tl4 MDM: 15:52 Patient medically screened. rn 19:37 Differential diagnosis: CVA, generalized weakness, GI bleed, hypovolemia, idiopathic rn dizziness, TIA, vertigo. Data reviewed: vital signs, nurses notes, lab test result(s), EKG, radiologic studies, and as a result, I will admit patient. ED course: Consulted with Dr. Womack, recommends transfer for splenic infarct with liquefaction as we do not have hematology or vascular consultation. Stable H\T\H and normal CBC. Transfer initiated to [facility].. 19:49 Consideration of Admission/Observation Patient was admitted/placed on observation. rn Escalation of care including admission/observation considered. Counseling: I had a detailed discussion with the patient and/or guardian regarding the historical points, exam findings, and any diagnostic results supporting the discharge/admit diagnosis, lab results, radiology results, the need to transfer to another facility, for higher level of care, [facility] does not immediately have the required specialist. 11/18 15:53 Order name: Basic Metabolic Panel; Complete Time: 18:57 11/18 15:53 Order name: CBC with Diff; Complete Time: 16:52 11/18 15:53 Order name: Hepatic Function; Complete Time: 18:57 11/18 15:53 Order name: Magnesium; Complete Time: 18:57 11/18 15:53 Order name: Protime (+inr); Complete Time: 18:57 11/18 15:53 Order name: Ptt, Activated; Complete Time: 18:57 11/18 15:53 Order name: Troponin High Sensitivity; Complete Time: 18:57 11/18 15:53 Order name: Urinalysis w/ reflexes; Complete Time: 19:25 11/18 15:53 Order name: CT Head Brain wo Cont; Complete Time: 18:57 11/18 15:53 Order name: Chest Single View XRAY; Complete Time: 18:57 11/18 15:53 Order name: Head Angio CT; Complete Time: 19:51 rn 11/18 15:53 Order name: Neck Angio CT; Complete Time: 19:55 11/18 15:59 Order name: CT Abd/Pelvis - IV Contrast Only; Complete Time: 19:25 11/18 15:53 Order name: EKG; Complete Time: 15:54 rn 11/18 15:53 Order name: Cardiac monitoring; Complete Time: 16:40 rn 11/18 15:53 Order name: EKG - Nurse/Tech; Complete Time: 16:40 rn 11/18 15:53 Order name: IV Saline Lock; Complete Time: 16:40 rn 11/18 15:53 Order name: Labs collected and sent; Complete Time: 16:40 rn 11/18 15:53 Order name: NPO; Complete Time: 16:40 rn 11/18 15:53 Order name: O2 Per Protocol; Complete Time: 16:21 rn 11/18 15:53 Order name: O2 Sat Monitoring; Complete Time: 16:21 rn 11/18 16:50 Order name: Labs - recollect needed: recollect blue top; Complete Time: 18:00 bd EC:36 Rate is 61 beats/min. Rhythm is regular. QRS [place] is Normal. [place] interval is normal. QRS rn interval is normal. QT interval is normal. No Q waves. T waves are Normal. No ST changes noted. Clinical impression: Normal ECG. Interpreted by me. Reviewed by me. Administered Medications: 15:57 CANCELLED (Duplicate Order): ondansetron 4 mg IVP once; over 2 minutes rn 16:20 Drug: NS 0.9% IV 500 ml IV at bolus once Route: IV; Rate: bolus; Site: right nj1 antecubital; 17:35 Follow up: IV Status: Completed infusion; IV Intake: 500ml nj1 16:20 Drug: Meclizine PO 50 mg PO once Route: PO; nj1 17:35 Follow up: Response: No adverse reaction; Marked relief of symptoms nj1 20:37 Drug: Gabapentin PO 900 mg PO once Route: PO; nj1 22:43 Follow up: Response: No adverse reaction tl4 20:37 Drug: amLODIPine PO 10 mg PO once Route: PO; nj1 22:43 Follow up: Response: No adverse reaction tl4 Disposition Summary: 11/19/23 19:51 Transfer Ordered Notes: Transfer Location: [facility] rn Reason: Higher level of care rn Condition: Stable rn Problem: new rn Symptoms: have improved rn Accepting Physician: (11/19/23 23:27) tl4 Diagnosis - Splenic infarction with liquefaction rn - Dizziness and giddiness rn Forms: - Medication Reconciliation Form rn - SBAR form rn Signatures: Dispatcher [employer] EDMS Lizz Rodriguez Roman, MD MD rn Benton, Danielle, RN RN Ines Ashley, RN RN nj1 Shun Delong RN RN tl4 Corrections: (The following items were deleted from the chart) 15:54 15:54 BASIC METABOLIC PANEL+C.LAB.BRZ ordered. EDMS EDMS 15:54 15:54 CBC+H.LAB.BRZ ordered. EDMS EDMS 15:54 15:54 HEPATIC FUNCTION+C.LAB.BRZ ordered. EDMS EDMS 15:54 15:54 MAGNESIUM+C.LAB.BRZ ordered. EDMS EDMS 15:54 15:54 PROTIME (+INR)+COAG.LAB.BRZ ordered. EDMS EDMS 15:54 15:54 PTT, ACTIVATED+COAG.LAB.BRZ ordered. EDMS EDMS 15:54 15:54 Troponin High Sensitivity+C.LAB.BRZ ordered. EDMS EDMS 15:54 15:54 Urinalysis+U.LAB.BRZ ordered. EDMS EDMS 15:57 15:53 Ondansetron IVP 4 mg IVP once; over 2 minutes ordered. rn rn 23:27 19:51 rn tl4
--- NOTE | 2023-11-19 19:52 | ER ---
Nurse's Notes [facility] Name: Annita Abreu Age: 73 yrs Sex: Female : 1950 Arrival Date: 11/19/2023 Time: 15:49 Bed 17 Private MD: Diagnosis: Splenic infarction with liquefaction;Dizziness and giddiness Presentation: 11/18 15:54 Chief complaint: EMS states: DIZZINESS AND VOMITING FELL OFF TOILET. DENIES HITTING db HEAD. ABD DISCOMFORT. Coronavirus screen: Client denies travel out of the [place] in the last 14 days. At this time, the client does not indicate any symptoms associated with coronavirus-19. Ebola Screen: Patient negative for fever greater than or equal to 101.5 degrees Fahrenheit, and additional compatible Ebola Virus Disease symptoms Patient denies exposure to infectious person. Patient denies travel to an Ebola-affected area in the 21 days before illness onset. No symptoms or risks identified at this time. Initial Sepsis Screen: Does the patient meet any 2 criteria? No. Patient's initial sepsis screen is negative. Does the patient have a suspected source of infection? No. Patient's initial sepsis screen is negative. Risk Assessment: Do you want to hurt yourself or someone else? Patient reports no desire to harm self or others. Onset of symptoms was November 19, 2023. Care prior to arrival: IV initiated. 20 GA, in the right antecubital area, Glucose check: 79. 15:54 Method Of Arrival: EMS: [facility] db 15:54 Acuity: HUGH 2 db Triage Assessment: 15:55 General: Appears in no apparent distress. comfortable, Behavior is calm, cooperative. db Pain: Complains of pain in abdomen. Neuro: Level of Consciousness is awake, alert, obeys commands, Oriented to person, place, time, situation. GI: Abdomen is distended, Reports lower abdominal pain, nausea, vomiting. Historical: - Allergies: 15:55 No Known Allergies; db - PMHx: 15:55 Asthma; Anemia; GERD; Hypertension; Hepatitis; Rheumatoid Arthritis; db - Immunization history:: Adult Immunizations unknown. - Infectious Disease History:: Denies. - Social history:: Smoking status: Patient denies any tobacco usage or history of. - Family history:: not pertinent. - Hospitalizations: : No recent hospitalization is reported. Screenin:20 [facility] ED Fall Risk Assessment (Adult) History of falling in the last 3 months, nj1 including since admission No falls in past 3 months (0 pts) Confusion or Disorientation No (0 pts) Intoxicated or Sedated No (0 pts) Impaired Gait No (0 pts) Mobility Assist Device Used No (0 pt) Altered Elimination No (0 pt) Score/Fall Risk Level 0 - 2 = Low Risk Oriented to surroundings, Maintained a safe environment, Hourly rounding (assess needs \T\ fall precautionary measures) done. Abuse screen: Denies threats or abuse. Denies injuries from another. Nutritional screening: No deficits noted. Tuberculosis screening: No symptoms or risk factors identified. Assessment: 16:20 General: Appears in no apparent distress. comfortable, Behavior is calm, cooperative, nj1 appropriate for age. 16:20 Pain: Denies pain. Neuro: Level of Consciousness is awake, alert, obeys commands, nj1 Oriented to person, place, time, situation. Cardiovascular: Patient's skin is warm and dry. Respiratory: Airway is patent Respiratory effort is even, unlabored. GI: Reports nausea, vomiting. 17:35 Reassessment: Patient appears in no apparent distress at this time. Patient and/or nj1 family updated on plan of care and expected duration. Pain level reassessed. Patient is alert, oriented x 3, equal unlabored respirations, skin warm/dry/pink. Patient states feeling better. Patient states symptoms have improved. 18:49 Reassessment: Patient appears in no apparent distress at this time. Patient and/or nj1 family updated on plan of care and expected duration. Pain level reassessed. Patient is alert, oriented x 3, equal unlabored respirations, skin warm/dry/pink. 19:24 Reassessment: Patient appears in no apparent distress at this time. Patient and/or nj1 family updated on plan of care and expected duration. Pain level reassessed. Patient is alert, oriented x 3, equal unlabored respirations, skin warm/dry/pink. 21:15 Reassessment: Patient and/or family updated on plan of care and expected duration. Pain tl4 level reassessed. Patient is alert, oriented x 3, equal unlabored respirations, skin warm/dry/pink. Pt updated on status of transfer. Pt denies any needs at this time Patient states feeling better. 22:39 Reassessment: Patient and/or family updated on plan of care and expected duration. Pain tl4 level reassessed. Patient is alert, oriented x 3, equal unlabored respirations, skin warm/dry/pink. Daughter updated on transfer at pt request. Pt updated on transfer, signed transfer form. Pt denies any needs at this time. Will continue to monitor. 23:24 Reassessment: Patient and/or family updated on plan of care and expected duration. Pain tl4 level reassessed. Patient is alert, oriented x 3, equal unlabored respirations, skin warm/dry/pink. Vital Signs: 15:54 BP 99 / 76; Pulse 67; Resp 18; Pulse Ox 94% 2 lpm ; db 16:45 BP 121 / 60; Pulse 59; Resp 16; Pulse Ox 97% ; nj1 17:35 BP 143 / 63; Pulse 62; Resp 17; Pulse Ox 97% ; nj1 18:49 BP 155 / 80; Pulse 67; Resp 18; Pulse Ox 98% on R/A; nj1 19:22 BP 157 / 62; Pulse 59; Pulse Ox 99% ; nj1 19:51 BP 152 / 74; Pulse 62; Resp 18 S; Pulse Ox 96% on R/A; as6 22:15 BP 149 / 65; Pulse 62; Resp 16; Pulse Ox 97% on R/A; tl4 22:45 BP 156 / 54; Pulse 65; Resp 18; Pulse Ox 96% on R/A; tl4 23:25 BP 168 / 64; Pulse 73; Resp 18; Temp 98.5(O); Pulse Ox 97% on R/A; Pain 6/10; tl4 23:25 Pain Scale: Adult tl4 ED Course: 15:52 Patient arrived in ED. rn 15:52 Santos Hdz MD is Attending Physician. rn 15:55 Triage completed. db 15:55 Arm band placed on Patient placed in a hallway bed. db 16:02 Radiology exam delayed due to lab results not completed at this time. (BUN/Creatinine). nj 16:02 Radiology exam delayed due to IV insertion attempt and/or patient not having nj appropriate IV at this time. 16:21 Ines Barclay, TANYA is Primary Nurse. nj1 16:25 Patient has correct armband on for positive identification. Placed in gown. Bed in low nj1 position. Call light in reach. Side rails up X 1. 16:25 Provided Education on: call light, fall precautions. nj1 16:37 Chest Single View XRAY In Process Unspecified. EDMS 17:43 Radiology exam delayed due to lab results not completed at this time. (BUN/Creatinine). nj 18:16 CT Head Brain wo Cont In Process Unspecified. EDMS 18:[address] In Process Unspecified. EDMS 18:[address] In Process Unspecified. EDMS 18:21 CT Abd/Pelvis - IV Contrast Only In Process Unspecified. EDMS 18:45 Assisted with bedpan. nj1 19:34 Called [facility] to initiate transfer spoke with Naz Ralph vk 20:22 patient was accepted to [facility] to [id number] Rodrigez. vk 21:01 Report given to Shun MARTÍNEZ. nj1 21:30 called EMS for transport ETA 25 mins. vk 22:41 No provider procedures requiring assistance completed. Maintain EMS IV. Dressing tl4 intact. Good blood return noted. Site clean \T\ dry. Gauge \T\ site: 20g right upper forearm. 22:43 Patient transferred, IV remains in place. tl4 Administered Medications: 15:57 CANCELLED (Duplicate Order): ondansetron 4 mg IVP once; over 2 minutes rn 16:20 Drug: NS 0.9% IV 500 ml IV at bolus once Route: IV; Rate: bolus; Site: right nj1 antecubital; 17:35 Follow up: IV Status: Completed infusion; IV Intake: 500ml nj1 16:20 Drug: Meclizine PO 50 mg PO once Route: PO; nj1 17:35 Follow up: Response: No adverse reaction; Marked relief of symptoms nj1 20:37 Drug: Gabapentin PO 900 mg PO once Route: PO; nj1 22:43 Follow up: Response: No adverse reaction tl4 20:37 Drug: amLODIPine PO 10 mg PO once Route: PO; nj1 22:43 Follow up: Response: No adverse reaction tl4 Medication: 19:52 VIS not applicable for this client. as6 Intake: 17:35 IV: 500ml; Total: 500ml. nj1 Outcome: 19:51 ER care complete, transfer ordered by . rn 23:26 [facility] completed. tl4 23:26 Condition: stable 23:26 Instructed on the need for transfer, 23:27 Patient left the ED. tl4 Signatures: Dispatcher [employer] EDSantos Mohan MD MD rn Jordan, Nathan nj Slawson, Ashby, RN RN as6 Kavya Harris RN Ines Bernstein RN RN nj1 Shun Delong RN RN tl4 Annie Louis
[2023-11-19] MEDS ORDERED: GABAPENTIN 300 MG CAP ONE ×2 (20:32→20:35)
[2023-11-19] MEDS ORDERED: AMLODIPINE 10 MG TAB ONE (20:32)
[2023-11-19 23:45] VITALS: BP 168/64; TEMP 98.5; O2SAT 97
--- NOTE | 2023-11-21 14:05 | EKG ---
Test Date: 2023-11-19 Test Time: 16:25:43 Kitchen Helper: TL MEASUREMENT RESULTS: Intervals: Rate: 61 NV: 152 QRSD: 78 QT: 458 QTc: 461 [place]: P: 71 NV: 152 QRS: 75 T: 38 INTERPRETIVE STATEMENTS: Normal sinus rhythm Normal ECG Compared to ECG 07/03/2018 16:10:38 Sinus tachycardia no longer present Atrial premature complex(es) no longer present Electronically Signed On 11-21-23 14:00:52 CDT by Leopoldo Jaffe
== END 2023-11-19 23:27 | disposition short-term general hospital (02) ==
LOC: ER 15:49
DX: D73.5 Infarction of spleen (principal); I10 Essential (primary) hypertension
CPT/HCPCS: 93005; 85025; 81001; 80048; 36415; 83735; 85610; 80076; 85730; 84484; 70450; 70496; 70498; 74177; 71045; Q9967; J8597; J7040